=== PATIENT | female | born 1940 | race Caucasian/White ===

== ENCOUNTER 2025-02-27 14:08 | Outpatient (CLI) | payer MEDICARE, SELFPAY ==
--- NOTE | ~2025-02-27 | US_ITS ---
EXAMINATION: US carotid duplex BI DATE: 02/27/2025 19:36 CDT INDICATION: Branch retinal vein occlusion TECHNIQUE: Grayscale, color Doppler, and pulsed Doppler images of the cervical carotid arteries were obtained. The degree of vessel stenosis is placed in one of the following categories: normal, <50%, 50-69%, >=7 0% but less than near-occlusion, near-occlusion, or total occlusion. Note that percent stenosis relative to normal distal artery lumen diameter is indirectly measured fro m velocity measurements as described originally by Jori, et al. Radiology 2003; 229:340-346 and upda truman by mayi Edmondson al STROKE 2012;43(3);915-921. COMPARISON: None. FINDINGS: There is mild atherosclerosis of both carotid arteries. Peak systolic velocity (in cm/s) is detailed below RIGHT: Right common carotid artery (CCA): 93 cm/s. Right internal carotid artery (ICA) PSV: 83 cm/s. Right ICA end-diastolic velocity (EDV): 15 cm/s. Right ICA/CCA PSV ratio is 0.9. Right external carotid artery (ECA): 116cm/s. There is antegrade flow in the right vertebral artery LEFT: Left common carotid artery (CCA): 82 cm/s. Left internal carotid artery (ICA) PSV: 173 cm/s. Left ICA end-diastolic velocity (EDV): 41.2 cm/s. Left ICA/CCA PSV ratio is 2.1. Left external carotid artery (ECA): 125cm/s. There is antegrade flow in the left vertebral artery. IMPRESSION: 1. Less than 50% stenosis in the right internal carotid artery. 2. 50-69% stenosis in the left internal carotid artery. Reviewed, dictated and finalized at location A.
--- OUTSIDE RECORDS SUMMARY | 2025-02-27 14:24 | XMS_ITS | Data Portability ---
Author Organization [facility] Address [address] [place] [address] Assessment Encounter Date Assessment Date Assessment LastModified by Organization Details LastModified Time 10/18/2023 10/18/2023 hypertension amlodipine and irbesartan and Bystolic. Rhinitis controlled with Singulair and dyslipidemia low-fat diet and rosuvastatin breast cancer aromatase inhibitor therapy she will follow-up with me in 6 months we decided Not available 10/18/2023 22:39:42 04/18/2024 04/18/2024 stop amlodipine start nifedipine ER 30 mg daily with a blood pressure check in a couple of weeks and see me in 1 month CBC CMP and lipid. Oncology note reviewed she refuses bisphosphonates because she had jaw problems with Fosamax in the past she does take a baby aspirin daily. Reiterated calcium intake [email or web address] Not available 05/07/2024 12:48:34 05/24/2024 05/24/2024 blood pressure coming under better control A1c being addressed with the metformin and dietary strategies she will try to walk a little bit more dyslipidemia rosuvastatin she will follow up in 4 months still need to query her old records for immunizations [email or web address] Not available 06/17/2024 21:54:28 10/11/2024 10/11/2024 continue current therapy blood work has been ordered Lifestyle care instructions she has a appointment for foot health in November of this year states that she has had her pneumococcal vaccinations and flu shot I will see her in 6 months we will try to get her latest DEXA [email or web address] Not available 10/12/2024 22:33:38 02/13/2025 02/13/2025 Follow up 4 adriana hs continue current therapy healthy lifestyle care instructions. Blood work has been ordered it sounds like she is going to be released from her oncologist here soon with regards to the breast cancer. We will await the official report on her eyes from her portable machine cutter. CBC CMP lipid A1c [email or web address] Not available 02/13/2025 10:48:24 Plan of Treatment Reminders Order Date Submit Date Provider Last Modified By Organization Details Last Modified Time Details Appointments ANY 15 2024 09:00A Anjali Colon MD Not available Not available Not available Lab HbA1c (hemog lobin A1c), blood 2024 025 MARIA GUADALUPE [facility], [address], [place], [address], 02/14/2025 11:14:16 lipid panel, serum 2024 025 [facility] GUADALUPE [facility], [address], [place], [address], 02/14/2025 11:14:14 CBC w/ auto diff 2024 025 MARIA GUADALUPE [facility], [address], [place], [address], 02/14/2025 11:14:17 CMP, serum or plasma 2024 025 MARIA GUADALUPE [facility], [address], [place], [address], 02/14/2025 11:14:15 HbA1c (hemog lobin A1c), blood 2024 025 MARIA GUADALUPE [facility], [address], [place], [address], 10/12/2024 13:15:20 albumi n/crea radhaine , mass ratio, urine 2024 025 MARIA GUADALUPE [facility], [address], [place], [address], 10/12/2024 13:15:16 lipid panel, serum 2024 025 MARIA GUADALUPE [facility], [address] [facility], [facility] [address], [place], [address], 10/12/2024 13:15:17 CMP, serum or plasma 2024 025 MARIA GUADALUPE [facility], [address] [facility], [facility] [address], [place], [address], 10/12/2024 13:15:18 CBC w/ auto diff 2024 025 MARIA GUADALUPE [facility], [address] [facility], [facility] [address], [place], [address], 10/12/2024 13:15:22 lipid panel, serum 2023 024 [facility] GUADALUPE [facility], [address] [place] [address], [facility] [address], [place], [address], 04/19/2024 06:21:05 CMP, serum or plasma 2023 024 [facility]ADALUPE [facility], [address] [place] [address], [address], [place], [address], 04/19/2024 06:21:05 CBC w/ auto diff 2023 024 [facility], [address] [place] [address], [facility] [address], [place], [address], 04/19/2024 06:21:06 Referral None record ed. Procedures None record ed. Surgeries None record ed. Imaging None record ed. Medication Orders nifedi pine ER 30 mg tablet ,exten ded releas e 2023 024 MARIA GUADALUPE [id number] [facility], [address] [place], [address], 05/09/2024 12:31:48 rosuva statin 10 mg tablet 2023 024 [email or web address], [address], [place], [address], 10/19/2024 15:27:12 irbesa rtan 300 mg tablet 2023 024 [email or web address] [facility], [address], [place], [address], 10/18/2023 21:17:26 Bystol ic 10 mg tablet 2023 024 [facility], [address], [place], [address], 10/18/2023 21:17:26 corrine ukast 10 mg tablet 2023 024 [email or web address] [facility], [address], [place], [address], 04/18/2024 10:40:31 Patient TargetsNo targets recorded. Patient Instructions Encounter Date Encounter Id Patient Instructions Last Modified By Organization Details Last Modified Time 04/18/2024 [id number] A healthy lifestyle: care instructions Not available 04/18/2024 13:16:49 10/11/2024 [id number] A healthy lifestyle: care instructions Not available 10/11/2024 12:49:51 02/13/2025 [id number] A healthy lifestyle: care instructions [email or web address] Not available 02/13/2025 12:32:56 Reason for Referral None Reported. Results Created Date Observation Date Name Description Value Unit Range Abnormal Flag Note LastModifiedBy Organization Detail LastModifiedTime 04/18/2004/19/2024 LIPID PANEL cholesterol, total 188 mg/dL 100-19 9 Not Available [facility] ([facility]) [address] [facility], [place], [address], 04/19/2024 06:21:05 04/18/20 24 04/19/2024 LIPID PANEL triglyceride s 207 mg/dL 0-149 above high normal Not Available [facility] ([facility]) [address] [facility], [place], [address], 04/19/2024 06:21:05 04/18/20 24 04/19/2024 LIPID PANEL HDL cholesterol 61 mg/dL >39 Not Available [facility] ([facility]) [address] [place], [address], 04/19/2024 06:21:05 04/18/20 24 04/19/2024 LIPID PANEL VLDL cholesterol shandra 35 mg/dL 5-40 Not Available [facility] ([facility]) [address] [place], [address], 04/19/2024 06:21:05 04/18/20 24 04/19/2024 LIPID PANEL LDL chol calc ([facility]) 92 mg/dL 0-99 Not Available [facility] ([facility]) [address] [place], [address], 04/19/2024 06:21:05 04/18/20 24 04/19/2024 COMP. METAB OLIC PANEL (14) glucose 142 mg/dL 70-99 above high normal Not Available [facility] ([facility]) [address] [place], [address], 04/19/2024 06:21:05 04/18/20 24 04/19/2024 COMP. METAB OLIC PANEL (14) BUN 27 mg/dL 8-27 Not Available [facility] ([facility]) [address] [place], [address], 04/19/2024 06:21:05 04/18/20 24 04/19/2024 COMP. METAB OLIC PANEL (14) creatinine 1.14 mg/dL 0.57-1 .00 above high normal Not Available [facility] ([facility]) [address] [place], [address], 04/19/2024 06:21:05 04/18/20 24 04/19/2024 COMP. METAB OLIC PANEL (14) eGFR 48 mL/mi n/1.7 3 >59 below low normal Not Available [facility] ([facility]) [address], [place], [address], 04/19/2024 06:21:05 04/18/20 24 04/19/2024 COMP. METAB OLIC PANEL (14) BUN/creatini ne ratio 24 12-28 Not Available [facility] ([facility]) [address], [place], [address], 04/19/2024 06:21:05 04/18/20 24 04/19/2024 COMP. METAB OLIC PANEL (14) sodium 141 mmol/ L 134-14 4 Not Available [facility] ([facility]) [address], [place], [address], 04/19/2024 06:21:05 04/18/20 24 04/19/2024 COMP. METAB OLIC PANEL (14) potassium 4.8 mmol/ L 3.5-5. 2 Not Available [facility] ([facility]) [address], [place], [address], 04/19/2024 06:21:05 04/18/20 24 04/19/2024 COMP. METAB OLIC PANEL (14) chloride 102 mmol/ L 96-106 Not Available [facility] ([facility]) [address], [place], [address], 04/19/2024 06:21:05 04/18/20 24 04/19/2024 COMP. METAB OLIC PANEL (14) carbon dioxide, total 24 mmol/ L 20-29 Not Available [facility] ([place] [facility]) [address], [place], [address], 04/19/2024 06:21:05 04/18/20 24 04/19/2024 COMP. METAB OLIC PANEL (14) calcium 10.6 mg/dL 8.7-10 .3 above high normal Not Available [facility] ([place] [facility]) [address] [facility], [place], [address], 04/19/2024 06:21:05 04/18/20 24 04/19/2024 COMP. METAB OLIC PANEL (14) protein, total 7.3 g/dL 6.0-8. 5 Not Available [facility] ([facility]) [address], [place], [address], 04/19/2024 06:21:05 04/18/20 24 04/19/2024 COMP. METAB OLIC PANEL (14) albumin 4.6 g/dL 3.7-4. 7 Not Available [facility] ([facility]) [address], [place], [address], 04/19/2024 06:21:05 04/18/20 24 04/19/2024 COMP. METAB OLIC PANEL (14) globulin, total 2.7 g/dL 1.5-4. 5 Not Available [facility] ([facility]) [address], [place], [address], 04/19/2024 06:21:05 04/18/20 24 04/19/2024 COMP. METAB OLIC PANEL (14) bilirubin, total 0.7 mg/dL 0.0-1. 2 Not Available [facility] ([facility]) [address], [place], [address], 04/19/2024 06:21:05 04/18/20 24 04/19/2024 COMP. METAB OLIC PANEL (14) alkaline phosphatase 77 IU/L 44-121 Not Available [facility] ([facility]) [address], [place], [address], 04/19/2024 06:21:05 04/18/20 24 04/19/2024 COMP. METAB OLIC PANEL (14) AST (SGOT) 25 IU/L 0-40 Not Available [facility] ([facility]) [address] [facility], [place], [address], 04/19/2024 06:21:05 04/18/20 24 04/19/2024 COMP. METAB OLIC PANEL (14) ALT (SGPT) 20 IU/L 0-32 Not Available [facility] ([facility]) [address] [facility], [place], [address], 04/19/2024 06:21:05 04/18/20 24 04/18/2024 CBC WITH DIFFE RENTI AL/PL ATELE T WBC 5.5 x10e3 /uL 3.4-10 .8 Not Available [facility] ([facility]) [address] [facility], [place], [address], 04/19/2024 06:21:06 04/18/2004/18/2024 CBC WITH DIFFE RENTI AL/PL ATELE T RBC 4.27 x10e6 /uL 3.77-5 .28 Not Available [facility] ([facility]) [address] [facility], [place], [address], 04/19/2024 06:21:06 04/18/20 24 04/18/2024 CBC WITH DIFFE RENTI AL/PL ATELE T hemoglobin 13.4 g/dL 11.1-1 5.9 Not Available [facility] ([facility]) [address] [facility], [place], [address], 04/19/2024 06:21:06 04/18/2004/18/2024 CBC WITH DIFFE RENTI AL/PL ATELE T hematocrit 41.2 % 34.0-4 6.6 Not Available [facility] ([facility]) [address] [facility], [place], [address], 04/19/2024 06:21:06 04/18/2004/18/2024 CBC WITH DIFFE RENTI AL/PL ATELE T MCV 97 fL 79-97 Not Available [facility] ([facility]) [address] [facility], [place], [address], 04/19/2024 06:21:06 04/18/20 24 04/18/2024 CBC WITH DIFFE RENTI AL/PL ATELE T MCH 31.4 pg 26.6-3 3.0 Not Available [facility] ([facility]) [address] [facility], [place], [address], 04/19/2024 06:21:06 04/18/20 24 04/18/2024 CBC WITH DIFFE RENTI AL/PL ATELE T MCHC 32.5 g/dL 31.5-3 5.7 Not Available [facility] ([facility]) [address] [facility], [place], [address], 04/19/2024 06:21:06 04/18/2004/18/2024 CBC WITH DIFFE RENTI AL/PL ATELE T RDW 12.6 % 11.7-1 5.4 Not Available [facility] ([facility]) [address] [facility], [place], [address], 04/19/2024 06:21:06 04/18/20 24 04/18/2024 CBC WITH DIFFE RENTI AL/PL ATELE T platelets 223 x10e3 /uL 150-45 0 Not Available [facility] ([facility]) [address] [facility], [place], [address], 04/19/2024 06:21:06 04/18/20 24 04/18/2024 CBC WITH DIFFE RENTI AL/PL ATELE T neutrophils 59 % notest ab. Not Available [facility] ([facility]) [address] [place], [address], 04/19/2024 06:21:06 04/18/2004/18/2024 CBC WITH DIFFE RENTI AL/PL ATELE T lymphs 23 % notest ab. Not Available [facility] ([facility]) [address] [place], [address], 04/19/2024 06:21:06 04/18/2004/18/2024 CBC WITH DIFFE RENTI AL/PL ATELE T monocytes 9 % notest ab. Not Available [facility] ([facility]) [address] [facility], [place], [address], 04/19/2024 06:21:06 04/18/20 24 04/18/2024 CBC WITH DIFFE RENTI AL/PL ATELE T eos 8 % notest ab. Not Available [facility] ([facility]) [address] [facility], [place], [address], 04/19/2024 06:21:06 04/18/20 24 04/18/2024 CBC WITH DIFFE RENTI AL/PL ATELE T basos 1 % notest ab. Not Available [facility] ([facility]) [address] [facility], [place], [address], 04/19/2024 06:21:06 04/18/20 24 04/18/2024 CBC WITH DIFFE RENTI AL/PL ATELE T neutrophils (absolute) 3.2 x10e3 /uL 1.4-7. 0 Not Available [facility] ([facility]) [address] [facility], [place], [address], 04/19/2024 06:21:06 04/18/2004/18/2024 CBC WITH DIFFE RENTI AL/PL ATELE T lymphs (absolute) 1.3 x10e3 /uL 0.7-3. 1 Not Available [facility] ([facility]) [address] [facility], [place], [address], 04/19/2024 06:21:06 04/18/2004/18/2024 CBC WITH DIFFE RENTI AL/PL ATELE T monocytes(ab solute) 0.5 x10e3 /uL 0.1-0. 9 Not Available [facility] ([facility]) [address] [facility], [place], [address], 04/19/2024 06:21:06 04/18/20 24 04/18/2024 CBC WITH DIFFE RENTI AL/PL ATELE T eos (absolute) 0.4 x10e3 /uL 0.0-0. 4 Not Available [facility] ([facility]) [address] [place], [address], 04/19/2024 06:21:06 04/18/20 24 04/18/2024 CBC WITH DIFFE RENTI AL/PL ATELE T baso (absolute) 0.1 x10e3 /uL 0.0-0. 2 Not Available [facility] ([facility]) [address] [place], [address], 04/19/2024 06:21:06 04/18/2004/18/2024 CBC WITH DIFFE RENTI AL/PL ATELE T immature granulocytes 0 % notest ab. Not Available [facility] ([facility]) [address] [place], [address], 04/19/2024 06:21:06 04/18/20 24 04/18/2024 CBC WITH DIFFE RENTI AL/PL ATELE T immature grans (abs) 0.0 x10e3 /uL 0.0-0. 1 Not Available [facility] ([facility]) [address] [place], [address], 04/19/2024 06:21:06 04/24/2004/25/2024 HEMOG LOBIN A1C hemoglobin A1C 7.5 % 4.8-5. 6 above high normal Predi abete s: 5.7 - 6.4 Diabe veronica: >6.4 Glyce carmelita contr ol for adult s with diabe veronica: <7.0 Not Available [facility] ([facility]) [address] [place], [address], 04/25/2024 06:18:03 10/12/1910/12/2024 SPECI MEN STATU S REPOR T specimen status report TNP Test not perfo rmed. Patie nt was unabl e to provi de a self- colle cted speci men for the reque sted testi ng. The follo wing test( s) were not perfo rmed: TEST: [id number] Album in/Cr eatin ine Ratio ,Urin e Not Available [facility] ([facility]) [address] [place], [address], 10/12/2024 13:15:15 10/12/19 25 10/12/2024 ALBUM IN/CR EATIN INE RATIO ,URIN E creatinine, urine - mg/dL Test not perfo rmed. Patie nt was unabl e to provi de a self- colle cted speci men for the reque sted testi ng. The follo wing test( s) were not perfo rmed: Not Available [facility] ([facility]) [address] [place], [address], 10/12/2024 13:15:16 10/12/19 25 10/12/2024 ALBUM IN/CR EATIN INE RATIO ,URIN E albumin, urine - Test not perfo rmed Not Available [facility] ([facility]) [address] [place], [address], 10/12/2024 13:15:16 10/12/19 25 10/12/2024 LIPID PANEL cholesterol, total 185 mg/dL 100-19 9 Not Available [facility] ([facility]) [address] [place], [address], 10/12/2024 13:15:17 10/12/19 25 10/12/2024 LIPID PANEL triglyceride s 171 mg/dL 0-149 above high normal Not Available [facility] ([facility]) [address] [place], [address], 10/12/2024 13:15:17 10/12/19 25 10/12/2024 LIPID PANEL HDL cholesterol 65 mg/dL >39 Not Available [facility] ([facility]) [address] [place], [address], 10/12/2024 13:15:17 10/12/19 25 10/12/2024 LIPID PANEL VLDL cholesterol shandra 29 mg/dL 5-40 Not Available [facility] ([facility]) [address] [place], [address], 10/12/2024 13:15:17 10/12/19 25 10/12/2024 LIPID PANEL LDL chol calc ([facility]) 91 mg/dL 0-99 Not Available [facility]) [address] [place], [address], 10/12/2024 13:15:17 10/12/19 25 10/12/2024 COMP. METAB OLIC PANEL (14) glucose 99 mg/dL 70-99 Not Available [facility] ([facility]) [address] [place], [address], 10/12/2024 13:15:18 10/12/19 25 10/12/2024 COMP. METAB OLIC PANEL (14) BUN 36 mg/dL 8-27 above high normal Not Available [facility] ([facility]) [address] [place], [address], 10/12/2024 13:15:18 10/12/19 25 10/12/2024 COMP. METAB OLIC PANEL (14) creatinine 1.37 mg/dL 0.57-1 .00 above high normal Not Available [facility] ([facility]) [address] [place], [address], 10/12/2024 13:15:18 10/12/19 25 10/12/2024 COMP. METAB OLIC PANEL (14) eGFR 38 mL/mi n/1.7 3 >59 below low normal Not Available [facility] ([facility]) [address] [place], [address], 10/12/2024 13:15:18 10/12/19 25 10/12/2024 COMP. METAB OLIC PANEL (14) BUN/creatini ne ratio 26 12-28 Not Available [facility] ([facility]) [address] [facility] [place], [address], 10/12/2024 13:15:18 10/12/19 25 10/12/2024 COMP. METAB OLIC PANEL (14) sodium 141 mmol/ L 134-14 4 Not Available [facility] ([facility]) [address] [facility] [place], [address], 10/12/2024 13:15:18 10/12/19 25 10/12/2024 COMP. METAB OLIC PANEL (14) potassium 5.1 mmol/ L 3.5-5. 2 Not Available [facility] ([facility]) [address] [facility], [place], [address], 10/12/2024 13:15:18 10/12/19 25 10/12/2024 COMP. METAB OLIC PANEL (14) chloride 103 mmol/ L 96-106 Not Available [facility] ([facility]) [address] [facility], [place], [address], 10/12/2024 13:15:18 10/12/19 25 10/12/2024 COMP. METAB OLIC PANEL (14) carbon dioxide, total 22 mmol/ L 20-29 Not Available [facility] ([facility]) [address] [facility] [place], [address], 10/12/2024 13:15:18 10/12/19 25 10/12/2024 COMP. METAB OLIC PANEL (14) calcium 10.7 mg/dL 8.7-10 .3 above high normal Not Available [facility] ([facility]) [address] [facility] [place], [address], 10/12/2024 13:15:18 10/12/19 25 10/12/2024 COMP. METAB OLIC PANEL (14) protein, total 7.4 g/dL 6.0-8. 5 Not Available [facility] ([facility]) [address], [place], [address], 10/12/2024 13:15:18 10/12/19 25 10/12/2024 COMP. METAB OLIC PANEL (14) albumin 4.9 g/dL 3.7-4. 7 above high normal Not Available [facility] ([facility]) [address], [place], [address], 10/12/2024 13:15:18 10/12/19 25 10/12/2024 COMP. METAB OLIC PANEL (14) globulin, total 2.5 g/dL 1.5-4. 5 Not Available [facility] ([facility]) [address] [facility] [place], [address], 10/12/2024 13:15:18 10/12/19 25 10/12/2024 COMP. METAB OLIC PANEL (14) bilirubin, total 0.6 mg/dL 0.0-1. 2 Not Available [facility] ([facility]) [address] [facility], [place], [address], 10/12/2024 13:15:18 10/12/19 25 10/12/2024 COMP. METAB OLIC PANEL (14) alkaline phosphatase 73 IU/L 44-121 Not Available [facility]) [address] [facility], [place], [address], 10/12/2024 13:15:18 10/12/19 25 10/12/2024 COMP. METAB OLIC PANEL (14) AST (SGOT) 27 IU/L 0-40 Not Available [facility] ([facility]) [address] [facility] [place], [address], 10/12/2024 13:15:18 10/12/19 25 10/12/2024 COMP. METAB OLIC PANEL (14) ALT (SGPT) 19 IU/L 0-32 Not Available [facility] ([facility]) [address] [facility] [place], [address], 10/12/2024 13:15:18 10/12/19 25 10/11/2024 UNABL E TO VOID unable to void Commen t Patie nt unabl e to void. Urine to be colle cted at a later date. Not Available [facility] ([facility]) [address] [place], [address], 10/12/2024 13:15:20 10/12/19 25 10/12/2024 HEMOG LOBIN A1C hemoglobin A1C 6.2 % 4.8-5. 6 above high normal Predi abete s: 5.7 - 6.4 Diabe veronica: >6.4 Glyce carmelita contr ol for adult s with diabe veronica: <7.0 Not Available [facility] ([facility]) [address] [place], [address], 10/12/2024 13:15:20 10/12/19 25 10/12/2024 CBC WITH DIFFE RENTI AL/PL ATELE T WBC 6.6 x10e3 /uL 3.4-10 .8 Not Available [facility] ([facility]) [address] [facility], [place], [address], 10/12/2024 13:15:22 10/12/19 25 10/12/2024 CBC WITH DIFFE RENTI AL/PL ATELE T RBC 4.19 x10e6 /uL 3.77-5 .28 Not Available [facility] ([facility]) [address] [facility], [place], [address], 10/12/2024 13:15:22 10/12/19 25 10/12/2024 CBC WITH DIFFE RENTI AL/PL ATELE T hemoglobin 13.0 g/dL 11.1-1 5.9 Not Available [facility] ([facility]) [address] [place], [address], 10/12/2024 13:15:22 10/12/19 25 10/12/2024 CBC WITH DIFFE RENTI AL/PL ATELE T hematocrit 40.6 % 34.0-4 6.6 Not Available [facility] ([facility]) [address] [facility], [place], [address], 10/12/2024 13:15:22 10/12/19 25 10/12/2024 CBC WITH DIFFE RENTI AL/PL ATELE T MCV 97 fL 79-97 Not Available [facility] ([facility]) [address] [facility], [place], [address], 10/12/2024 13:15:22 10/12/19 25 10/12/2024 CBC WITH DIFFE RENTI AL/PL ATELE T MCH 31.0 pg 26.6-3 3.0 Not Available [facility] ([facility]) [address] [facility], [place], [address], 10/12/2024 13:15:22 10/12/19 25 10/12/2024 CBC WITH DIFFE RENTI AL/PL ATELE T MCHC 32.0 g/dL 31.5-3 5.7 Not Available [facility] ([facility]) [address] [place], [address], 10/12/2024 13:15:22 10/12/19 25 10/12/2024 CBC WITH DIFFE RENTI AL/PL ATELE T RDW 12.4 % 11.7-1 5.4 Not Available [facility] ([facility]) [address] [place], [address], 10/12/2024 13:15:22 10/12/19 25 10/12/2024 CBC WITH DIFFE RENTI AL/PL ATELE T platelets 250 x10e3 /uL 150-45 0 Not Available [facility] ([facility]) [address] [place], [address], 10/12/2024 13:15:22 10/12/19 25 10/12/2024 CBC WITH DIFFE RENTI AL/PL ATELE T neutrophils 59 % notest ab. Not Available [facility] ([facility]) [address] [facility], [place], [address], 10/12/2024 13:15:22 10/12/19 25 10/12/2024 CBC WITH DIFFE RENTI AL/PL ATELE T lymphs 22 % notest ab. Not Available [facility] ([facility]) [address] [facility], [place], [address], 10/12/2024 13:15:22 10/12/19 25 10/12/2024 CBC WITH DIFFE RENTI AL/PL ATELE T monocytes 9 % notest ab. Not Available [facility] ([facility]) [address] [facility], [place], [address], 10/12/2024 13:15:22 10/12/19 25 10/12/2024 CBC WITH DIFFE RENTI AL/PL ATELE T eos 8 % notest ab. Not Available [facility] ([facility]) [address] [facility] [address], [place], [address], 10/12/2024 13:15:22 10/12/19 25 10/12/2024 CBC WITH DIFFE RENTI AL/PL ATELE T basos 2 % notest ab. Not Available [facility] ([facility]) [address] [facility] [address], [place], [address], 10/12/2024 13:15:22 10/12/19 25 10/12/2024 CBC WITH DIFFE RENTI AL/PL ATELE T neutrophils (absolute) 4.0 x10e3 /uL 1.4-7. 0 Not Available [facility] ([facility]) [address] [facility] [address], [place], [address], 10/12/2024 13:15:22 10/12/19 25 10/12/2024 CBC WITH DIFFE RENTI AL/PL ATELE T lymphs (absolute) 1.4 x10e3 /uL 0.7-3. 1 Not Available [facility] ([facility]) [address] [facility] [address], [place], [address], 10/12/2024 13:15:22 10/12/19 25 10/12/2024 CBC WITH DIFFE RENTI AL/PL ATELE T monocytes(ab solute) 0.6 x10e3 /uL 0.1-0. 9 Not Available [facility] ([facility]) [address] [facility] [address], [place], [address], 10/12/2024 13:15:22 10/12/19 25 10/12/2024 CBC WITH DIFFE RENTI AL/PL ATELE T eos (absolute) 0.5 x10e3 /uL 0.0-0. 4 above high normal Not Available [facility] ([facility]) [address], [place], [address], 10/12/2024 13:15:22 10/12/19 25 10/12/2024 CBC WITH DIFFE RENTI AL/PL ATELE T baso (absolute) 0.1 x10e3 /uL 0.0-0. 2 Not Available [facility] ([facility]) [address], [place], [address], 10/12/2024 13:15:22 10/12/19 25 10/12/2024 CBC WITH DIFFE RENTI AL/PL ATELE T immature granulocytes 0 % notest ab. Not Available [facility] ([facility]) [address] [place], [address], 10/12/2024 13:15:22 10/12/19 25 10/12/2024 CBC WITH DIFFE RENTI AL/PL ATELE T immature grans (abs) 0.0 x10e3 /uL 0.0-0. 1 Not Available [facility] ([facility]) [address] [facility] [facility] [address], [place], [address], 10/12/2024 13:15:22 02/14/20 25 02/14/2025 LIPID PANEL cholesterol, total 213 mg/dL 100-19 9 above high normal Not Available [facility] ([facility]) [address] [place], [address], 02/14/2025 11:14:14 02/14/20 25 02/14/2025 LIPID PANEL triglyceride s 167 mg/dL 0-149 above high normal Not Available [facility] ([facility]) [address] [place], [address], 02/14/2025 11:14:14 02/14/20 25 02/14/2025 LIPID PANEL HDL cholesterol 71 mg/dL >39 Not Available [facility] ([facility]) [address] [place], [address], 02/14/2025 11:14:14 02/14/20 25 02/14/2025 LIPID PANEL VLDL cholesterol shandra 29 mg/dL 5-40 Not Available [facility] ([facility]) [address] [place], [address], 02/14/2025 11:14:14 02/14/20 25 02/14/2025 LIPID PANEL LDL chol calc ([facility]) 113 mg/dL 0-99 above high normal Not Available [facility] ([facility]) [address] [place], [address], 02/14/2025 11:14:14 02/14/20 25 02/14/2025 COMP. METAB OLIC PANEL (14) glucose 116 mg/dL 70-99 above high normal Not Available [facility] ([facility]) [address] [place], [address], 02/14/2025 11:14:15 02/14/20 25 02/14/2025 COMP. METAB OLIC PANEL (14) BUN 36 mg/dL 8-27 above high normal Not Available [facility] ([facility]) [address] [place], [address], 02/14/2025 11:14:15 02/14/20 25 02/14/2025 COMP. METAB OLIC PANEL (14) creatinine 1.50 mg/dL 0.57-1 .00 above high normal Not Available [facility] ([facility]) [address] [facility] [facility] [address], [place], [address], 02/14/2025 11:14:15 02/14/20 25 02/14/2025 COMP. METAB OLIC PANEL (14) eGFR 34 mL/mi n/1.7 3 >59 below low normal Not Available [facility] ([facility]) [address] [facility] [place], [address], 02/14/2025 11:14:15 02/14/20 25 02/14/2025 COMP. METAB OLIC PANEL (14) BUN/creatini ne ratio 24 12-28 Not Available [facility] ([facility]) [address] [facility] [facility] [place], [address], 02/14/2025 11:14:15 02/14/20 25 02/14/2025 COMP. METAB OLIC PANEL (14) sodium 142 mmol/ L 134-14 4 Not Available [facility] ([facility]) [address] [facility] [place], [address], 02/14/2025 11:14:15 02/14/20 25 02/14/2025 COMP. METAB OLIC PANEL (14) potassium 5.0 mmol/ L 3.5-5. 2 Not Available [facility] ([facility]) [address] [facility] [place], [address], 02/14/2025 11:14:15 02/14/20 25 02/14/2025 COMP. METAB OLIC PANEL (14) chloride 104 mmol/ L 96-106 Not Available [facility] ([facility]) [address] [facility] [place], [address], 02/14/2025 11:14:15 02/14/20 25 02/14/2025 COMP. METAB OLIC PANEL (14) carbon dioxide, total 20 mmol/ L 20-29 Not Available [facility] ([facility]) [address] [facility] [place], [address], 02/14/2025 11:14:15 02/14/20 25 02/14/2025 COMP. METAB OLIC PANEL (14) calcium 11.0 mg/dL 8.7-10 .3 above high normal Not Available [facility] ([facility]) [address] [facility] [place], [address], 02/14/2025 11:14:15 02/14/20 25 02/14/2025 COMP. METAB OLIC PANEL (14) protein, total 7.5 g/dL 6.0-8. 5 Not Available [facility] ([facility]) [address] [facility] [place], [address], 02/14/2025 11:14:15 02/14/20 25 02/14/2025 COMP. METAB OLIC PANEL (14) albumin 4.9 g/dL 3.7-4. 7 above high normal Not Available [facility] ([facility]) [address] [facility] [place], [address], 02/14/2025 11:14:15 02/14/20 25 02/14/2025 COMP. METAB OLIC PANEL (14) globulin, total 2.6 g/dL 1.5-4. 5 Not Available [facility] ([facility]) [address] [facility] [place], [address], 02/14/2025 11:14:15 02/14/20 25 02/14/2025 COMP. METAB OLIC PANEL (14) bilirubin, total 0.6 mg/dL 0.0-1. 2 Not Available [facility] ([facility]) [address] [facility] [place], [address], 02/14/2025 11:14:15 02/14/20 25 02/14/2025 COMP. METAB OLIC PANEL (14) alkaline phosphatase 72 IU/L 44-121 Not Available [facility] ([facility]) [address] [facility] [place], [address], 02/14/2025 11:14:15 02/14/20 25 02/14/2025 COMP. METAB OLIC PANEL (14) AST (SGOT) 30 IU/L 0-40 Not Available [facility] ([facility]) [address] [facility] [facility] [place], [address], 02/14/2025 11:14:15 02/14/20 25 02/14/2025 COMP. METAB OLIC PANEL (14) ALT (SGPT) 17 IU/L 0-32 Not Available [facility] ([facility]) [address] [place], [address], 02/14/2025 11:14:15 02/14/20 25 02/14/2025 HEMOG LOBIN A1C hemoglobin A1C 6.1 % 4.8-5. 6 above high normal Predi abete s: 5.7 - 6.4 Diabe veronica: >6.4 Glyce carmelita contr ol for adult s with diabe veronica: <7.0 Not Available [facility] ([facility]) [address] [place], [address], 02/14/2025 11:14:16 02/14/20 25 02/14/2025 CBC WITH DIFFE RENTI AL/PL ATELE T WBC 6.3 x10e3 /uL 3.4-10 .8 Not Available [facility] ([facility]) [address] [place], [address], 02/14/2025 11:14:17 02/14/2002/14/2025 CBC WITH DIFFE RENTI AL/PL ATELE T RBC 4.36 x10e6 /uL 3.77-5 .28 Not Available [facility] ([facility]) [address] [place], [address], 02/14/2025 11:14:17 02/14/20 25 02/14/2025 CBC WITH DIFFE RENTI AL/PL ATELE T hemoglobin 13.1 g/dL 11.1-1 5.9 Not Available [facility] ([facility]) [address], [place], [address], 02/14/2025 11:14:17 02/14/2002/14/2025 CBC WITH DIFFE RENTI AL/PL ATELE T hematocrit 42.0 % 34.0-4 6.6 Not Available [facility] ([facility]) [address] [place], [address], 02/14/2025 11:14:17 02/14/2002/14/2025 CBC WITH DIFFE RENTI AL/PL ATELE T MCV 96 fL 79-97 Not Available [facility] ([facility]) [address] [place], [address], 02/14/2025 11:14:17 02/14/2002/14/2025 CBC WITH DIFFE RENTI AL/PL ATELE T MCH 30.0 pg 26.6-3 3.0 Not Available [facility] ([facility]) [address] [place], [address], 02/14/2025 11:14:17 02/14/2002/14/2025 CBC WITH DIFFE RENTI AL/PL ATELE T MCHC 31.2 g/dL 31.5-3 5.7 below low normal Not Available [facility] ([facility]) [address] [place], [address], 02/14/2025 11:14:17 02/14/2002/14/2025 CBC WITH DIFFE RENTI AL/PL ATELE T RDW 13.2 % 11.7-1 5.4 Not Available [facility] ([facility]) [address] [place], [address], 02/14/2025 11:14:17 02/14/20 25 02/14/2025 CBC WITH DIFFE RENTI AL/PL ATELE T platelets 248 x10e3 /uL 150-45 0 Not Available [facility] ([facility]) [address], [place], [address], 02/14/2025 11:14:17 02/14/20 25 02/14/2025 CBC WITH DIFFE RENTI AL/PL ATELE T neutrophils 63 % notest ab. Not Available [facility] ([facility]) [address], [place], [address], 02/14/2025 11:14:17 02/14/20 25 02/14/2025 CBC WITH DIFFE RENTI AL/PL ATELE T lymphs 20 % notest ab. Not Available [facility] ([facility]) [address], [place], [address], 02/14/2025 11:14:17 02/14/20 25 02/14/2025 CBC WITH DIFFE RENTI AL/PL ATELE T monocytes 8 % notest ab. Not Available [facility] ([facility]) [address], [place], [address], 02/14/2025 11:14:17 02/14/20 25 02/14/2025 CBC WITH DIFFE RENTI AL/PL ATELE T eos 8 % notest ab. Not Available [facility] ([facility]) [address], [place], [address], 02/14/2025 11:14:17 02/14/20 25 02/14/2025 CBC WITH DIFFE RENTI AL/PL ATELE T basos 1 % notest ab. Not Available [facility] ([facility]) [address], [place], [address], 02/14/2025 11:14:17 02/14/20 25 02/14/2025 CBC WITH DIFFE RENTI AL/PL ATELE T neutrophils (absolute) 4.0 x10e3 /uL 1.4-7. 0 Not Available [facility] ([facility]) [address], [place], [address], 02/14/2025 11:14:17 02/14/20 25 02/14/2025 CBC WITH DIFFE RENTI AL/PL ATELE T lymphs (absolute) 1.2 x10e3 /uL 0.7-3. 1 Not Available [facility] ([facility]) [address], [place], [address], 02/14/2025 11:14:17 02/14/20 25 02/14/2025 CBC WITH DIFFE RENTI AL/PL ATELE T monocytes(ab solute) 0.5 x10e3 /uL 0.1-0. 9 Not Available [facility] ([facility]) [address], [place], [address], 02/14/2025 11:14:17 02/14/20 25 02/14/2025 CBC WITH DIFFE RENTI AL/PL ATELE T eos (absolute) 0.5 x10e3 /uL 0.0-0. 4 above high normal Not Available [facility] ([facility]) [address], [place], [address], 02/14/2025 11:14:17 02/14/20 25 02/14/2025 CBC WITH DIFFE RENTI AL/PL ATELE T baso (absolute) 0.1 x10e3 /uL 0.0-0. 2 Not Available [facility] ([facility]) [address], [place], [address], 02/14/2025 11:14:17 02/14/2002/14/2025 CBC WITH DIFFE RENTI AL/PL ATELE T immature granulocytes 0 % notest ab. Not Available [facility] ([facility]) [address], [place], [address], 02/14/2025 11:14:17 02/14/20 25 02/14/2025 CBC WITH DIFFE RENTI AL/PL ATELE T immature grans (abs) 0.0 x10e3 /uL 0.0-0. 1 Not Available [facility] ([facility]) [address], [place], [address], 02/14/2025 11:14:17 01/07/20 24 12/28/2023 diabe tic eye exam* No observ ation record ed. [employer] [employer] [facility] [address], [place], [address], 08/22/2024 12:24:41 Result Notes None recorded. Problems Name Problem SNOMED Code Status Onset Date Resolution Date Notes Provider Name and Address Organization Details Recorded Time Essential hypertension 00670425 Active 2023 Abiodun Welsh MA null, [place] - [facility] 4 11:19:10 Overweight 467338375 Active 2023 Abiodun Welsh MA null, [place] - [facility] 4 11:19:10 Type 2 diabetes mellitus 88447298 Active 2023 Hernandez Colon MD Attn: Shahnaz olivas,[address] [facility], [place], [address], [facility] 4 17:38:26 Hyperlipidemia 28825217 Active 2023 Hernandez Colon MD Attn: Shahnaz olivas,[address] [facility], [place], [address], [place] - [facility] 4 12:47:39 History of malignant neoplasm of breast 729665347 Active 2023 Hernandez Colon MD Attn: Shahnaz olivas,[address] [facility], [place], [address], [place] [facility] 4 12:47:58 Osteopenia 994986132 Active 2023 Hernandez Colon MD Attn: Shahnaz olivas,[address] [facility], [place], [address], [place] [facility] 4 12:48:18 Problem Notes None recorded. Procedures Surgical History Date Name Laterality Status Provider Name and Address Organization Details Recorded Time Eye Surgery completed Jian Jefferson GALINA [facility] 10/18/2023 16:36:14 Knee Surgery completed Jian Jefferson GALINA [facility] 10/18/2023 16:36:55 Breast Surgery completed Jian Jefferson GALINA [facility] 10/18/2023 16:37:02 Total hysterectomy completed Jian JeffersonGALINA [facility] 10/18/2023 16:37:09 Mastectomy completed Jian Jefferson GALINA [facility] 10/18/2023 16:37:20 Imaging Results None recorded. Procedure Notes None recorded. Medical Equipment None Reported. Allergies Allergen ID Allergen Name Allergen Category Reaction Reaction Severity Criticality Documentation Date Start Date Code Code System Note Provider Name and Address Organization Details Recorded Time 053002 acetamino phen / oxycodone medicatio n Not available Not available Not available 10/18/2023 93577 3 RxNorm Jian JeffersonGALINA luiz [facility] 4 16:39:28 832647 tamoxifen medicatio n Not available Not available Not available 10/18/2023 28565 RxNorm Jian JeffersonGALINA luiz [facility] 4 16:39:46 Medications Name Sig Start Date Stop Date Status Note LastModified by Organization Details LastModified Time metformin 500 mg tablet TAKE 1 TABLET DAILY 2023 active Not Available Not Available Not Avai lable anastrozo le 1 mg tablet active Not Available Not Available Not Available atorvasta tin 20 mg tablet Take 1 tablet every day by oral route for 90 days. 2024 active Not Available Not Available Not Avai lable atorvasta tin 10 mg tablet TAKE 1 TABLET DAILY 02/23 completed dose changed Not Available Not Available Not Available nifedipin e ER 30 mg tablet,ex tended release TAKE 1 TABLET BY MOUTH EVERY DAY 05/09 completed Not Available Not Available Not Available amlodipin e 5 mg tablet TAKE 1 TABLET DAILY 04/[address] Colon at visit 04/18/24 changed to Nifedipi ne Not Available Not Available Not Available montel[address] st 10 mg tablet Take 1 tablet every day by oral route. 04/18 completed Not Available Not Available Not Available Baby Aspirin 81 mg chewable tablet Chew 1 tablet every day by oral route. active Not Available Not Available No t Available methylpre dnisolone 4 mg tablets in a dose pack Take 1 dose pk by oral route. 02/13 completed Not Available Not Available Not Available nifedipin e ER 60 mg tablet,ex tended release TAKE 1 TABLET DAILY 2023 active Not Available Not Available Not Avai lable fluticaso ne propionat e 50 mcg/actua tion nasal spray,fransisca pension [place] 1 spray every day by intranas al route. active Not Available Not Available No t Available irbesarta n 300 mg tablet TAKE 1 TABLET DAILY 2024 active Not Available Not Available Not Avai lable rosuvasta tin 10 mg tablet TAKE 1 TABLET DAILY 10/[address] Colon due to kidney lab results Not Available Not Available Not Available Tylenol active as needed Not Available Not Available Not Available Vitamin D3 25mcg active Not Available Not Available Not Available Zyrtec active Not Available Not Availa ble Not Available nebivolol 10 mg tablet TAKE 1 TABLET DAILY 2024 active Not Available Not Available Not Avai lable Prevacid 24Hr active Not Available Not Available Not Available OneTouch Verio test strips CHECK HER SUGAR 3 DAYS A WEEK IN THE MORNING active Not Available Not Available No t Available OneTouch Delica Plus Lancet 33 gauge USE TO CHECK BLOOD SUGARS IN THE MORNING THREE DAYS A WEEK active Not Available Not Available No t Available Vitals Date Recorded Body height Body mass index (BMI) Body weight Heart rate Oxygen saturation Oxygen saturation in Arterial blood by Pulse oximetry Systolic And Diastolic Provider Name and Address Organization Details Last Updated DateTime 5 162.56 cm 33.6 kg/m2 09213.0 3 g 70 /min 94 % 94 % 122/72 mm[Hg] Chayito Cai [place] - [facility] 5 11:32:15 Date Recorded Body weight Body mass index (BMI) Body height Heart rate Oxygen saturation Oxygen saturation in Arterial blood by Pulse oximetry Systolic And Diastolic Provider Name and Address Organization Details Last Updated DateTime 4 74572.7 6 g 34.3 kg/m2 162.56 cm 65 /min 93 % 93 % 160/80 mm[Hg] Jian Jefferson MA [facility] 4 16:43:56 Date Recorded Body height Body mass index (BMI) Body weight Heart rate Oxygen saturation Oxygen saturation in Arterial blood by Pulse oximetry Systolic And Diastolic Provider Name and Address Organization Details Last Updated DateTime 5 162.56 cm 32.9 kg/m2 76223.5 8 g 85 /min 95 % 95 % 140/78 mm[Hg] Chikis Mccarthy MA [facility] 5 09:57:31 Date Recorded Body height Body mass index (BMI) Body weight Heart rate Oxygen saturation Oxygen saturation in Arterial blood by Pulse oximetry Systolic And Diastolic Provider Name and Address Organization Details Last Updated DateTime 4 162.56 cm 35.6 kg/m2 83127.7 8 g 76 /min 95 % 95 % 170/80 mm[Hg] Nohemy Sanchez MA [facility] 4 10:37:40 Date Recorded Body height Body mass index (BMI) Body weight Heart rate Oxygen saturation Oxygen saturation in Arterial blood by Pulse oximetry Systolic And Diastolic Provider Name and Address Organization Details Last Updated DateTime 4 162.56 cm 34.7 kg/m2 67372.6 6 g 74 /min 97 % 97 % 120/54 mm[Hg] Nohemy Sanchez MA [facility] 4 10:31:12 Social History Question Answer Notes LastModified by Organizat ion Details LastModified Time Tobacco Smoking Status [facility] 10/18/2023 16:34:42 Are You Blind Or Do You Have Difficulty Seeing? No Information not available 10/18/2023 What Is Your Level Of Caffeine Consumption? None Information not available 10/18/2023 Are You Deaf Or Do You Have Serious Difficulty Hearing? No Information not available 10/18/2023 What Type Of Diet Are You Following? REGULAR Information not available 10/18/2023 Are There Any Guns Present In Your Home? No Information not available 10/18/2023 What Was The Date Of Your Most Recent Tobacco Screening? 02/13/2025 [email or web address] Information not available 02/13/2025 What Is Your Relationship Status? Information not available 10/18/2023 Do You Use Your Seat Belt Or Car Seat Routinely? Yes Information not available 10/18/2023 Do You Have Smoke And Carbon Monoxide Detectors In Your Home? Yes Information not available 10/18/2023 Do You Use Sunscreen Routinely? No Information not available 10/18/2023 Has Tobacco Cessation Counseling Been Provided? No Information not available 10/18/2023 Sex: Female Functional Status Question Answer Note LastModified by Organizat ion Details LastModified Time Do you use any illicit or recreational drugs? No Information not available 10/18/2023 Do you or have you ever used any other forms of tobacco or nicotine? No Information not available 10/18/2023 What is your level of alcohol consumption? None Information not available 10/18/2023 Are you able to care for yourself? Yes Information not available 10/18/2023 What is your exercise level? None Information not available 10/18/2023 Mental Status Question Answer Note LastModified by Organization D etails LastModified Time Do you feel stressed (tense, restless, nervous, or anxious, or unable to sleep at night)? [id number] Information not available 10/18/2023 Family History Relationship Description Onset Age of this Age Resolved Age Notes LastModified by Organization Details LastModified Time Father Cerebrovascu lar accident [email or web address] Not available 0 10/18/2023 16:33:42 Mother Heart disease [email or web address] Not available 10/07 16:33:50 Medical History Condition Response Coronary Artery Disease N Other N High Blood Pressure Y Atrial Fibrillation N Kidney or Bladder Problems N Thyroid Problems N GI Problems N Depression N COPD N Blood Clots Y Skin Problems N Anemia N Heart Attack ([place]) N Anxiety Disorder N Diabetes N Muscle, Joint, or Bone Problems Y Seizures/Epilepsy N Acid Reflux (GERD) N Cancer Y Stroke N Asthma N Allergies N High Cholesterol Y Hepatitis N Liver Disease N Headaches N Heart Failure N Osteoporosis N Gynecological HistoryNo gynecological history recorded. Obstetrics History GPAL:G 0 P 0 0 0 0 Immunizations Vaccine Type Date Status Note Provider Nam e and Address Organization Details Recorded Time zoster, unspecified formulation 0 completed Sharon G[place], [place] - [facility] 10/11/2024 09:12:43 Influenza, high-dose, quadrivalent, PF 1 completed Sharon Abraham [place] de[place], [place] [facility] 10/11/2024 09:12:43 Influenza, high-dose, quadrivalent, PF 3 completed Sharon [place] [facility] 10/11/2024 09:12:43 COVID-19, mRNA, LNP-S, PF, 30 mcg/0.3 mL dose 1 completed Sharon [place] [facility] 10/11/2024 09:12:43 COVID-19, mRNA, LNP-S, PF, 30 mcg/0.3 mL dose 1 completed Sharon [place] [facility] 10/11/2024 09:12:43 COVID-19, mRNA, LNP-S, PF, 30 mcg/0.3 mL dose 1 completed Sharon [place] [facility] 10/11/2024 09:12:43 COVID-19, mRNA, LNP-S, bivalent, PF, 30 mcg/0.3 mL dose 2 completed Sharon [place] [facility] 10/11/2024 09:12:43 COVID-19, mRNA, LNP-S, PF, diana-sucrose, 30 mcg/0.3 mL 3 completed Sharon [place] [facility] 10/11/2024 09:12:43 influenza, unspecified formulation 0 [place] [facility] 10/11/2024 09:12:44 influenza, unspecified formulation 8 [place] [facility] 10/11/2024 09:12:44 Pneumococcal conjugate PCV 13 4 [place] [facility] 10/11/2024 09:12:44 zoster live 0 completed Sharon Abraham, [place] [facility] 10/11/2024 09:12:44 Influenza, high-dose, trivalent, PF 8 completed Sharon [place], [place] [facility] 10/11/2024 09:12:44 Influenza, high-dose, trivalent, PF 9 completed Sharon [place] [facility] 10/11/2024 09:12:44 Influenza, high-dose, trivalent, PF 7 completed Sharon [place] [facility] 10/11/2024 09:12:44 Influenza, split virus, trivalent, preservative 0 completed Sharon [place] [facility] 10/11/2024 09:12:44 Influenza, split virus, quadrivalent, PF 2 completed Sharon [place] [facility] 10/11/2024 09:12:44 Influenza, adjuvanted, trivalent, PF 4 completed Chayito [place] [facility] 10/11/2024 11:29:19 COVID-19, mRNA, LNP-S, PF, diana-sucrose, 30 mcg/0.3 mL 4 completed Chayito [place] [facility] 10/11/2024 11:29:19 Tdap 9 completed Chikis Mcc[place] [facility] 02/13/2025 10:01:24 Past Encounters Encounter ID Performer Location Encounter Start Date Encounter Closed Date Diagnosis/Indication Diagnosis SNOMED-CT Code Diagnosis ICD10 Code Diagnosis Note [id number] Hernandez Colon MD [facility] (Adult Med) [address] [place] [phone] 10/18/2023 15:51:34 10/18/2023 17:32:02 Renewal of prescription 869249544 Z76.0 Essential hypertension 81956863 I10 Hyperlipidemia 67801537 E78.5 History of malignant neoplasm of breast 833492332 Z85.3 Chronic rhinitis 2600594 6 J31.0 [id number] Hernandez Colon MD [facility] (Adult Med) [address] [place] [id number] 04/18/2024 10:20:42 04/18/2024 11:17:01 Overweight 616820373 E66.3 BMI 35.6 Essential hypertension 50371744 I10 Hyperlipidemia 78207744 E78.5 Osteopenia 645490187 M85 .80 [id number] Hernandez Colon MD [facility] (Adult Med) [address] [place] [id number] 05/24/2024 10:16:01 05/24/2024 11:00:36 Hyperlipidemia 88849779 E78.5 Type 2 keith betes mellitus 69990629 E11.9 Essential hypertension 26785750 I10 [id number] Hernandez Colon MD [facility] (Adult Med) [address] [place] [id number] 10/11/2024 11:12:40 10/11/2024 12:00:00 Body mass index 30+ - obesity 838385934 Z68.33 Obesity 213380507 E66.9 Type 2 keith betes mellitus 15886559 E11.9 Hyperlipidemia 81063942 E78.5 Essential hypertension 94212321 I10 [id number] Hernandez Colon MD [facility] (Adult Med) [address] [place] [id number] 02/13/2025 09:49:08 02/13/2025 10:28:54 Obese class I 7464271575 81335 E66.811 BMI 32.9 Type 2 keith betes mellitus 58042409 E11.9 Essential hypertension 50919745 I10 Hyperlipidemia 78777167 E78.5 History of malignant neoplasm of breast 386175173 Z85.3 Health Concerns Section Related Observation LastModified by Organization Detai ls LastModified Time None Recorded Concern Status LastModified by Organization Details LastModified Time None Recorded Advance Directives Directive None Recorded Payers Insurance Date Sequence Insurance Name Policy Number Policy Ramsey Covered Member ID Ramsey Member ID Guarantor Name 02/13/2025 2 [place] [id number] Perla Aguero [id number] Perla Aguero 02/13/2025 [place] - [facility] - [facility] Perla Aguero [id number] Perla Aguero 02/13/2025 1 [place] Perla Aguero [id number] Perla Aguero 02/13/2025 3 [place] Perla Aguero [id number] Perla Aguero 02/13/2025 2 [place] [id number] Perla Aguero [id number] Perla Aguero 02/13/2025 1 [facility] - MEDICARE-[place] [address] (MEDICARE) Perla Aguero [id number] Perla Aguero Notes Date Note Type Note Provider Name and Address Organization Details Recorded Time 10/18/2023 text/html Hypertension no chest pain or dizziness. Hyperlipidemia doing fine with regard to red meat intake. History of breast cancer follows up with oncology and is on aromatase inhibitor therapy chronic rhinitis stable on her montelukast Hernandez Colon MD Attn: Accounting, [address] [facility], [place], [address], [facility] - [facility] 10/18/2023 22:40:06 04/18/2024 text/html blood pressure uncontrolled but asymptomatic. Weight struggles rhinitis doing okay she stopped the Singulair is taking Zyrtec. History of breast cancer follows with Oncology. Dyslipidemia does take her rosuvastatin Hernandez Colon MD Attn: Accounting,[address] [facility], [place], [address], [facility] - [facility] 05/07/2024 12:49:11 05/24/2024 text/html diabetes A1c 7.5 she is tolerating the metformin. Hypertension doing better on the nifedipine 60 mg. Hyperlipidemia she is tolerating the rosuvastatin Hernandez Colon MD Attn: Accounting,[address] [facility], [place], [address], [facility] - [facility] 06/17/2024 21:57:26 10/11/2024 text/html comes in for fol low up diabetes has been doing reasonably well but needs to have a little bit of blood work done hyperlipidemia tries to watch her diet blood pressure has been controlled she has not had any new interval developments or complaints as sounds like she may have actually been released by her oncologist Hernandez Colon MD Attn: Accounting,[address] [facility], [place], [address], [facility] - [facility] 10/12/2024 22:34:52 02/13/2025 text/html Diabetes no polyphagia or polydipsia no hypoglycemia does not take her sugars regularly. Hyperlipidemia she does try to follow a low-fat diet. Hypertension she has not had any chest pain shortness of breath or palpitations. Interval history she has had some micro and macro aneurysm she states from her appointment with the eye doctor and they are going to be doing some laser therapy whether or not this is diabetic retinopathy I do not have the official report yet but kind of sounds like [place]INA Méndez, [place] - [place] 02/16/2025 13:49:12 OBGyn Episode No OBEpisode recorded.
--- OUTSIDE RECORDS SUMMARY | 2025-02-27 14:24 | XMS_ITS | Clinical Summary ---
Author Organization [facility] Address [address] [place] [address] Care Team Providers Care Sport Shoe Spike Assembler Name Role Phone Hernandez Colon MD Primary Care Provider [phone] Allergies Active Allergy Reactions Criticality Noted Date Comments Oxycodone-Acetaminophen Tamoxifen Other (See comments) Low 06/10/2022 Developed a DVT Medications irbesartan (AVAPRO) 300 mg tablet 8 Active BYSTOLIC 10 mg tablet 8 Active rosuvastatin (CRESTOR) 10 mg tablet 8 Active aspirin 81 mg tablet Take 1 tablet (81 mg total) by mouth daily Active lansoprazole (PREVACID) 15 mg capsule Take 1 capsule (15 mg total) by mouth daily Active cetirizine (ZyrTEC) 10 mg chewable tablet Take 1 tablet (10 mg total) by mouth as needed for rhinitis Active fluticasone propionate (FLONASE) 50 mcg/actuation nasal spray Administer 1 spray into each nostril as needed for allergies or rhinitis Active calcium carbonate (OS-LAUREN) 1,500 mg (600 mg elemental) tablet 2 (two) times a day 0 Active cholecalciferol (VITAMIN D-3) 2000 unit capsule TAKE 1 CAPSULE EVERY DAY 90 capsule 3 Active Additional Information Patient taking differently: 1,000 Unitsoral Daily, Reported on 08/29/2024 metFORMIN (GLUCOPHAGE) 500 mg tablet Take 1 tablet (500 mg total) by mouth 2 (two) times a day with meals Active NIFEdipine (NIFEdipine CC) 60 mg 24 hr tablet Take 1 tablet (60 mg total) by mouth daily Active Active Problems Problem Noted Date Diagnosed Date Ductal carcinoma in situ (DCIS) of breast 2017 Abnormal mammogram 11/23/2014 Encounters Date Type Department Care Team Description 02/19/2025 9:43 AM CDT - 02/19/2025 11:59 PM CDT Hospital Encounter [facility] Medical Office Bl 1 Breast [facility] [address] [place] [address] Encounter for screening mammogram for breast cancer Discharge Disposition: Discharge to home or self care from Last 3 Months Immunizations Immunization Administration Dates Next Due Influenza, Quadrivalent, Spl it, Preservative Free, Intramuscular 05/18/2022 Influenza, Trivalent, High D ose, Split, Preservative Free, Intramuscular 05/17/2019 Influenza, Trivalent, IM (MDV) 05/11/2020 Influenza, Unspecified 05/04/2021,05/23/2020 Pfizer SARS-CoV-2 Monovalent Vaccination (12+ Yrs) PURPLE 05/04/2021,04/14/2021,09/23/2020,09/02,09/02/2020 Pfizer Sars-Cov-2 Bivalent V accination (12+ YRS) 05/18/2022 Pneumococcal Conjugate PCV 13 07/02/2014 ZOSTER LIVE 02/08/2020 Surgical History Surgery Date Site/Laterality Comments TOTAL KNEE ARTHROPLASTY Left CATARACT EXTRACTION W/ INTRA OCULAR LENS & ANTERIOR VITRECTOMY Left ABDOMINAL HYSTERECTOMY BREAST LUMPECTOMY MASTECTOMY MODIFIED RADICAL Left BREAST BIOPSY Medical History Medical History Date Comments HTN (hypertension) Hyperlipidemia Cataract Osteoarthritis of both knees Asthma GERD (gastroesophageal reflux disease) Breast cancer (HCC) Family History Medical History Relation Name Comments Coronary artery disease Father Stomach cancer Maternal Grandfather Stroke Maternal Grandmother Coronary artery disease Mother Breast cancer Mother's Sister Breast cancer Other aunt Coronary artery disease Paternal Grandfather Stroke Paternal Grandmother No Known Problems Sister Relation Name Status Comments Father Maternal Grandfather Maternal Grandmother Mother Mother's Sister Other aunt Paternal Grandfather Paternal Grandmother Sister Alive Social History Tobacco Use Types Packs/Day Years Used Date Smoking Tobacco: Never Smokeless Tobacco: Never Tobacco Cessation:Counseling Given: No Alcohol Use Standard Drinks/Week Comments No 0 (1 standard drink = 0.6 oz pur e alcohol) AUDIT-C Answer Date Recorded Q1: How often do you have a drink containing alcohol? Never 08/29/2024 Q2: How many drinks containi ng alcohol do you have on a typical day when you are drinking? Patient does not drink Q3: How often do you have si x or more drinks on one occasion? 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 Not on file Not on file Not on file Obstetrics History Para Term AB IAB SAB Ectopic Multiple Livin g Live Births 2 2 2 Date Outcome GA Total Labor Labor/2nd/3rd Weight Sex Type Anes PTL Catalina A1 A5 Name Clin Term Term Last Filed Vital Signs Vital Sign Reading Time Taken Comments Blood Pressure 127/70 08/29/2024 10:01 AM WET END SUPERVISOR Pulse 72 08/29/2024 10:01 AM WET END SUPERVISOR Temperature 36.2 C (97.1 F) 08/29/2024 10:01 AM WET END SUPERVISOR Respiratory Rate 18 08/29/2024 10:01 AM WET END SUPERVISOR Oxygen Saturation 97% 08/29/2024 10:01 AM WET END SUPERVISOR Inhaled Oxygen Concentration - - Weight 88.5 kg (195 lb) 08/29/2024 10:01 AM WET END SUPERVISOR no shoes Height 165.1 cm (5' 5) 08/29/2024 10:01 AM WET END SUPERVISOR no shoes Body Mass Index 32.45 08/29/2024 10:01 AM WET END SUPERVISOR Plan of Treatment Health Maintenance Due Date Last Done Comments Depression Screening 1941 Fall Risk Assessment 1941 DTaP/Tdap/Td Vaccine (1 - Tdap) 02/25/1952 Hepatitis B Screening 1959 Well Visit 65+ 2006 Pneumococcal vaccine 65+ (2 of 2 - PPSV23) 07/02/2015 07/02/2014 Zoster Vaccine (2 of 3) 04/04/2020 02/08/2020 Covid-19 Vaccine (2023-2 5 season) 2024 05/18/2022, 05/04/2021, 04/14/2021, Additional history exists Influenza Vaccine (#1) 2025 2, 05/04/2021, 05/23/2020, Additional history exists Osteoporosis Screening-Bone Density Scan 09/29/2025 09/29/2023 Procedures Procedure Name Priority Date/Time Associated Diagnosis Comments SCREENING MAMMOGRAM RIGHT W PRANAV UNILATERAL ONLY Schedule Routine, Read Routine (OP Routine) 02/19/2025 9:54 AM CDT Encounter for screening mammogram for breast cancer DEXA AXIAL SKELETON BONE DENSITY 1 OR MORE SITES Schedule Routine, Read Routine (OP Routine) 09/29/2023 8:25 AM WET END SUPERVISOR Ductal carcinoma in situ (DCIS) of breast, unspecified laterality buttermaker helper (current) use of aromatase inhibitors from Last 3 Months or Most Recently Relevant to Health Maintenance Results * Screening Mammogram Right W Pranav (02/19/2025 9:54 AM CDT) Anatomical Region Laterality Modality Breast Right Mammography Impressions 02/19/2025 10:21 AM CDT No evidence of malignancy. OVERALL BI-RADS FINAL ASSESSMENT: 1 - Negative RECOMMENDATION: Recommend right breast annual screening mammography. Narrative 02/19/2025 10:21 AM CDT EXAMINATION: Screening Mammogram Right W Pranav: 02/19/2025 COMPARISON: Relevent prior studies available at the time of interpretation were reviewed, including the most recent mammogram on: 02/16/2024. TECHNIQUE: Mammography was performed with 2D and digital breast tomosynthesis (DBT) images. CAD was utilized. BREAST PARENCHYMAL COMPOSITION: There are scattered areas of fibroglandular density. FINDINGS: There is no suspicious mass, calcification, or architectural distortion.The are benign right breast calcifications. Sandy Virgen NP IM MAMMO PROCEDURES Final Result * Dexa Axial Skeleton Bone Density 1 or 2 Site (09/29/2023 8:25 AM WET END SUPERVISOR) Anatomical Region Laterality Modality Body N/A Mammography 09/29/2023 8:31 AM WET END SUPERVISOR Narrative 09/29/2023 8:32 AM WET END SUPERVISOR EXAM DESCRIPTION: DEXA AXIAL SKELETON BONE DENSITY 1 OR MORE SITES REASON FOR STUDY: 83 y/o year old F with given history of: hx breast cancer, monitoring while on medication. Post menopausal status. Patient has taken/is taking Fosamax, hormone replacement therapy, vitamin-D and calcium. History of carcinoma Dependency Counselor/Model: [employer] A (S/N [id number]) CLINICAL INFORMATION: Current height: 64 inches Maximum height: 64.5 inches Weight: 203.8 pounds Risk factors: None COMPARISON: None available FINDINGS: AP LUMBAR SPINE L1-L4: Total BMD is 1.121 g/cm2 T-score is 0.7 LEFT HIP: Total BMD is 0.827 g/cm2 T-score is -0.9 Femoral neck BMD is 0.659 g/cm2 T-score is -1.7 FRAX: 10 year risk for a major osteoporotic fracture is 13 %, 10 year risk for a hip fracture is 3.6 % IMPRESSION: Low bone mass REFERENCE: Bone mineral density: Normal (T-score above or = -1.0) Low bone mass (T-score between -1.0 and -2.5) replaces the previously used term osteopenia Osteoporosis (T-score = or below -2.5) Please see below follow up recommendations. Medical evaluation for secondary causes of low bone mineral density may be appropriate. FRAX is a World Health Organization validated fracture risk assessment tool that calculates a person's 10 year probability of a major osteoporosis related fracture and hip fracture. According to the National Osteoporosis Foundation guidelines, postmenopausal women and men age 50 or older with low bone mass and a 10 year probability of a major osteoporosis related fracture = or greater than 20% or a 10 year probability of a hip fracture = or greater than 3% should be considered for pharmacological treatment for the prevention of osteoporosis. For further information, including treatment recommendations, please refer to the 2019 ISCD Official Positions (http://www.iscd.org) and the NOF's Clinician's Guide to Prevention and Treatment of Osteoporosis (http://www.nof.org/professionals/clinical-guidelines) THIS IS AN ELECTRONICALLY VERIFIED FINAL REPORT 09/29/2023 8:32 AM - Electronically signed by Candice Saenz M.D. TW: TW Report ID: [id number] Reading Location: [id number] Procedure Note Candice Saenz MD - 09/29/2023 EXAM DESCRIPTION: DEXA AXIAL SKELETON BONE DENSITY 1 OR MORE SITES REASON FOR STUDY: 83 y/o year old F with given history of: hx breast cancer, monitoring while on medication. Post menopausal status. Patienthas taken/is taking Fosamax, hormone replacement therapy, vitamin-D andcalcium. History of carcinoma Dependency Counselor/Model: [employer] A (S/N [id number]) CLINICAL INFORMATION: Current height: 64 inches Maximum height: 64.5 inches Weight: 203.8 pounds Risk factors: None COMPARISON: None available FINDINGS: AP LUMBAR SPINE L1-L4: Total BMD is 1.121 g/cm2 T-score is 0.7 LEFT HIP: Total BMD is 0.827 g/cm2 T-score is -0.9 Femoral neck BMD is 0.659 g/cm2 T-score is -1.7 FRAX: 10 year risk for a major osteoporotic fracture is 13 %, 10 year risk for ahip fracture is 3.6 % IMPRESSION: Low bone mass REFERENCE: Bone mineral density: Normal (T-score above or = -1.0) Low bone mass (T-score between -1.0 and -2.5) replaces thepreviously used term osteopenia Osteoporosis (T-score = or below -2.5) Please see below follow up recommendations. Medical evaluation forsecondary causes of low bone mineral density may be appropriate. FRAX is a World Health Organization validated fracture risk assessmenttool that calculates a person's 10 year probability of a major osteoporosisrelated fracture and hip fracture. According to the National OsteoporosisFoundation guidelines, postmenopausal women and men age 50 or older with low bonemass and a 10 year probability of a major osteoporosis related fracture = or greater than 20% or a 10 year probability of a hip fracture = or greaterthan 3% should be considered for pharmacological treatment for the preventionof osteoporosis. For further information, including treatment recommendations, please referto the 2019 ISCD Official Positions (http://www.iscd.org) and the NOF's Clinician's Guide to Prevention and Treatment of Osteoporosis (http://www.nof.org/professionals/clinical-guidelines) THIS IS AN ELECTRONICALLY VERIFIED FINAL REPORT 09/29/2023 8:32 AM - Electronically signed by Candice Saenz M.D. TW: TW Report ID: [id number] Reading Location: [place] [address] Jonah Carmona DO IMG DXA PROCEDURES Final Res ult from Last 3 Months or Most Recently Relevant to Health Maintenance Insurance [place] [address] [place] [address] MEDICARE SUPPLEMENT MEDICARE RAILROAD BLUE CROSS MEDICARE SUPPLEMENT [facility] MEDIC[facility] RAILROAD Care Teams Sport Shoe Spike Assembler Relationship Specialty Start Date End Date Hernandez Colon MD PCP - General Internal Medicine 05/06/18
--- OUTSIDE RECORDS SUMMARY | 2025-02-27 14:24 | XMS_ITS | Referral Summary ---
Author Organization [facility] Address [address] [place] [address] Care Team Providers Care Natural Gas Shothole Driller Name Role Phone Hernandez Colon MD Primary Care Provider [phone] Encounters Date Type Department Care Team Description 02/19/2025 9:43 AM CDT - 02/19/2025 11:59 PM CDT Hospital Encounter [facility] Medical Office Bl [address] [place] [address] Encounter for screening mammogram for breast cancer Discharge Disposition: Discharge to home or self care from Last 3 Months Allergies Active Allergy Reactions Criticality Noted Date [...] (DCIS) of breast 2017 Abnormal mammogram 11/23/2014 Immunizations Immunization Administration Dates Next Due Influenza, Quadrivalent, Spl it, Preservative Free, Intramuscular 05/18/2022 Influenza, Trivalent, High D ose, Split, Preservative Free, Intramuscular 05/17/2019 Influenza, Trivalent, IM (MDV) 05/11/2020 Influenza, Unspecified 05/04/2021,05/23/2020 Pfizer SARS-CoV-2 Monovalent Vaccination (12+ Yrs) PURPLE 05/04/2021,04/14/2021,09/23/2020,09/02,09/02/2020 Pfizer Sars-Cov-2 Bivalent V accination (12+ YRS) 05/18/2022 Pneumococcal Conjugate PCV 13 07/02/2014 ZOSTER LIVE 02/08/2020 Social History Tobacco Use Types Packs/Day Years [...] on file Legal Sex Female 5:44 AM TIE UP WORKER Gender Identity Not on file Sexual Orientation Not on file Occupation Industry Job Start Date Job End Date 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 Not on file Not on file Not on file Last Filed Vital Signs Vital Sign Reading Time Taken Comments Blood Pressure 127/70 08/29/2024 10:01 AM TIE UP WORKER Pulse 72 08/29/2024 10:01 AM TIE UP WORKER Temperature 36.2 C (97.1 F) 08/29/2024 10:01 AM TIE UP WORKER Respiratory Rate 18 08/29/2024 10:01 AM TIE UP WORKER Oxygen Saturation 97% 08/29/2024 10:01 AM TIE UP WORKER Inhaled Oxygen Concentration - - Weight 88.5 kg (195 lb) 08/29/2024 10:01 AM TIE UP WORKER no shoes Height 165.1 cm (5' 5) 08/29/2024 10:01 AM TIE UP WORKER no shoes Body Mass Index 32.45 08/29/2024 10:01 AM TIE UP WORKER Plan of Treatment Not on file Procedures Procedure Name Priority Date/Time Associated Diagnosis Comments SCREENING MAMMOGRAM RIGHT W PRANAV UNILATERAL ONLY Schedule Routine, Read Routine (OP Routine) 02/19/2025 9:54 AM CDT Encounter for screening mammogram for breast cancer DEXA AXIAL SKELETON BONE DENSITY 1 OR MORE SITES Schedule Routine, Read Routine (OP Routine) 09/29/2023 8:25 AM TIE UP WORKER Ductal carcinoma in situ (DCIS) of breast, unspecified laterality skilled nursing (current) use of aromatase inhibitors from Last [...] distortion.The are benign right breast calcifications. Sandy Rosalinda Virgen NP IMG MAMMO PROCEDURES Final Result * Dexa Axial Skeleton Bone Density 1 or 2 Site (09/29/2023 8:25 AM TIE UP WORKER) Anatomical Region Laterality Modality Body N/A Mammography 09/29/2023 8:31 AM TIE UP WORKER Narrative 09/29/2023 8:32 AM TIE UP WORKER EXAM DESCRIPTION: DEXA AXIAL SKELETON BONE DENSITY 1 OR MORE SITES REASON FOR STUDY: 83 y/o year old F with given history of: hx breast cancer, monitoring while on medication. Post menopausal status. Patient has taken/is taking Fosamax, hormone replacement therapy, vitamin-D and calcium. 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 TW: TW Report ID: [id number] Reading Location: [id number] Procedure Note Candice Saenz MD - 09/29/2023 EXAM DESCRIPTION: DEXA AXIAL SKELETON BONE DENSITY 1 OR MORE SITES REASON FOR STUDY: 83 y/o year old F with given history of: hx breast cancer, monitoring while on medication. Post menopausal status. Patienthas taken/is taking Fosamax, hormone replacement therapy, vitamin-D andcalcium. History of carcinoma Cuff Cutter/Model: [employer] A (S/N [id number]) CLINICAL INFORMATION: Current height: 64 inches Maximum [...] Electronically signed by Candice Saenz M.D. TW: MARTINEZ Report ID: [id number] Reading Location: [place] [address] Jonah Carmona DO IMG DXA PROCEDURES Final Res ult from Last 3 Months or Most Recently Relevant to Health [place] [address] [facility] MEDICARE SUPPLEMENT MEDICARE RAILROAD BLUE CROSS MEDICARE SUPPLEMENT [facility] MEDICARE RAILROAD Care Teams Natural Gas Shothole Driller Relationship Specialty Start Date End Date Hernandez Colon MD PCP - General Internal Medicine 05/06/18
--- OUTSIDE RECORDS SUMMARY | 2025-02-27 14:24 | XMS_ITS | Continuity of Care Document ---
Author Organization [facility] [place] [address] [facility] [address] [place] [address] Phone Care Team Providers Care Access Representative Name Role Phone [facility] Unavailable Unavail able Silviano Weir Unavailable Unavailable Procedures Procedure Date Progressive Lens, Plastic Frames Deluxe Tint Photochromatic, Plastic Medical Tax Eye Exam & Treatment Refraction Eye Exam & Treatment Refraction Eye Exam & Treatment Vision Svcs Frames Purchases Progressive Lens, Plastic Anti-reflective Coating Tax - Medical Eye Exam & Treatment Visual Functional Status Assessed Refraction Advance Directives Directive Yes / No Effective Date File Name No Information Encounters Encounter Description Practice Location Reason(s) For Visit Diagnoses Date Provider Providers Copied on Encounter [facility], [address], [place], [place], [id number], [place] tel:[phone] SEC [facility] No Information 3201 0 [facility] . [address] [facility], [address], [place], [place], [id number], [place]. tel:[phone] Referring Provider: Hanna Rodriguez, [facility] [address], [place], [address]. tel:[phone] g Provider: Silviano Weir, [facility], [place], [address]. tel:[phone] [facility], [address], [place], [place], [id number], [place] tel:[phone] [facility] No Information Sep-0 2-201 0 Jennifer Adorno [address], [place], [address], [place]. tel:[phone] [facility], [address] [place] [address] [address], [place], [place], [id number], [place] tel:[phone] [facility] No Information Sep-0 3-200 9 Jennifer Ferreira. [address] [facility] [address] , [address], [place], [address], [place]. tel:[phone] [facility], [address] [place] [address] [address], [place], [place], [id number], [place] tel:[phone] [facility] No Information Willian-2 4-200 8 Jennifer Ferreiar. [address] [facility] [address] , [address], [place], [address], [place]. tel:[phone] [facility], [address], [place], [place], [id number], [place] tel:[phone] SEC [facility] No Information Willian-0 6-200 7 [facility] . [address] [facility], [address], [place], [place], [id number], [place]. tel:[phone] Referring Provider: Hanna Rodriguez, [address] [facility] [address], [place], [address]. tel:[phone] olivas Provider: Celi Salgado, [address] [facility], [place], [address]. tel:[phone] 5296 [facility], [address], [place], [place], [id number], [place] tel:[phone] SEC [facility] No Information 5-200 7 Rodriguez Hanna. [address] [facility] , [address], [place], [address], [place]. tel:[phone] Family History Family Member Type Diagnosis Age At Onset No Information Payers Payer name Insurance type Covered republican ID Authoriza tion(s) No Information Social History Type Description Quantity Date Captured Comments Sex Female Smoking Status No Information Chief Complaint And Reason For Visit No Information Reason For Referral Reason For Referral No Information History Of Present Illness Encounter Date Complaint History Of Prese nt Illness No Information Functional Status Date Functional Assessmen t No Information Instructions Date Instruction Additional Infor mation No Information Assessments Type Assessment Date No Information Patient Care Teams Name Effective Dates (start - stop) Status Members No Information
--- OUTSIDE RECORDS SUMMARY | 2025-02-27 14:24 | XMS_ITS | Data Portability ---
Author Organization [email or web address], Main Office Address [address] [place] [address] Care Team Providers Care Allergist/Immunologist Physician Name Role Phone NENITA COLON Primary Care Provider NENITA COLON Referring Provider Assessment Encounter Date Assessment Date Assessment LastModified by Organization Details LastModified Time 03/09/2023 03/09/2023 Diagnosis in assessment plan have been discussed blood work has been ordered to be done prior to her next visit continue current therapy follow-up in 6 months doing well [email or web address] Not available 03/09/2023 10:49:03 Plan of Treatment Reminders Order Date Submit Date Provider Last Modified By Organization Details Last Modified Time Details Appointments None recorded. Lab vitamin D, 25-hydrox y, total, serum 023 023 [facility] (Lab), [address] [place], [address], 4 11:12:51 CBC w/ auto diff [address] [facility] (Lab), [address] [place], [address], 4 10:33:45 lipid panel, serum [address] [facility] (Lab), [address] [place], [address], 4 11:05:55 CMP, serum or plasma 023 023 MARIA GUADALUPE [facility] (Lab), [address] [place], [address], 11:06:06 Referral None recorded. Procedures None recorded. Surgeries None recorded. Imaging None recorded. Medication Orders None recorded. Patient TargetsNo targets recorded. Patient InstructionsNo instructions recorded. Reason for Referral None Reported. Results Created Date Observation Date Name Description Value Unit Range Abnormal Flag Note LastModifiedBy Organization Detail LastModifiedTime 02/12/20 22 02/11/2022 VITAM IN D 25-HY DROXY vd25oh 26.8 NG/mL 30-100 low Vitam in D Statu s: Defic ient: <20 ng/mL Insuf ficie nt: 20-29 ng/mL Suffi cient : 30-10 0 ng/mL Not Available [facility] (Lab) [address] [place], [address], 02/11/2022 13:03:17 02/12/20 22 02/11/2022 LIPID PANEL LDL cholesterol, calculated 34 mg/dL 0-130 NIH ERIN NSUS REPOR T RECOM MENDA TIONS FOR LDL: ADULT CHILD LOW RISK <130 <110 (OPTI MAL LDL) <100 ----- BORDE RLINE : 130-1 59 ----- HIGH RISK: >160 >130 A TRIGL YCERI DE RESUL T >400 INVAL IDATE S THE CALCU LATIO N FOR LDL FRACT IONAT ION - THE LDL RESUL T WILL NOT BE REPOR JUANA. Not Available [facility] (Lab) [address] [place], [address], 02/11/2022 12:47:32 02/12/20 22 02/11/2022 LIPID PANEL cholesterol 148 mg/dL 140-19 9 NIH ERIN NSUS RECOM MENDA TION FOR ZEENAT STERO L: ADULT CHILD LOW RISK: <200 <170 BORDE RLINE : <200- 239 ----- HIGH RISK: >240 >200 Not Available [facility] (Lab) [address] [place], [address], 02/11/2022 12:47:32 02/12/20 22 02/11/2022 LIPID PANEL triglyceride s 342 mg/dL 0-150 high NIH ERIN NSUS REPOR T RECOM MENDA TION FOR TRIGL YCERI NELSON: ADULT CHILD LOW RISK: <150 ----- BODER LINE: 150-1 99 ----- HIGH RISK: >200 ----- Not Available [facility] (Lab) [address] [place], [address], 02/11/2022 12:47:32 02/12/20 22 02/11/2022 LIPID PANEL HDL cholesterol 46 mg/dL 40- Not Available [facility] (Lab) [address] [place], [address], 02/11/2022 12:47:32 09/01/19 23 09/01/2022 COMPR EHENS STORM METAB OLIC PANEL glucose 157 mg/dL 70-99 high Not Available [facility] (Lab) [address] [place], [address], 09/01/2022 17:23:00 09/01/19 23 09/01/2022 COMPR EHENS STORM METAB OLIC PANEL sodium 139 mmol/ L 137-14 5 Not Available [facility] (Lab) [address] [place], [address], 09/01/2022 17:23:00 09/01/1909/01/2022 COMPR EHENS STORM METAB OLIC PANEL potassium 4.4 mmol/ L 3.5-5. 1 Not Available [facility] (Lab) [address] [place], [address], 09/01/2022 17:23:00 09/01/1909/01/2022 COMPR EHENS STORM METAB OLIC PANEL chloride 101 mmol/ L 98-107 Not Available [facility] (Lab) [address] [place], [address], 09/01/2022 17:23:00 09/01/19 23 09/01/2022 COMPR EHENS STORM METAB OLIC PANEL carbon dioxide 26 mmol/ L 22-30 Not Available [facility] (Lab) [address] [place], [address], 09/01/2022 17:23:00 09/01/19 23 09/01/2022 COMPR EHENS STORM METAB OLIC PANEL anion gap 16.4 mmol/ L 14-22 Not Available [facility] (Lab) [address] [place], [address], 09/01/2022 17:23:00 09/01/19 23 09/01/2022 COMPR EHENS STORM METAB OLIC PANEL BUN 36 mg/dL 8-19 high Not Available [facility] (Lab) [address] [place], [address], 09/01/2022 17:23:00 09/01/19 23 09/01/2022 COMPR EHENS STORM METAB OLIC PANEL creatinine 1.28 mg/dL 0.66-1 .25 high Not Available [facility] (Lab) [address] [place], [address], 09/01/2022 17:23:00 09/01/19 23 09/01/2022 COMPR EHENS STORM METAB OLIC PANEL GFR 40 Refer ence Range : Reva ge GFR Healt hy Adult : >60 mL/mi n/1.7 3 m2 Chron ic Kidne y Disea se: 15-60 mL/mi n/1.7 3 m2 Kidne y Failu re: <15/m L/min /1.73 m2 www.n iddk. nih.g ov The MDRD study equat ion has not been valid ated in child marcellus <18 years of age; pregn ant women ; the elder ly >85 years of age; or in some racia l or ethni c subgr oups, such as Hispa nics. Outsi de the valid ated lynda eters , estim ated GFR is less accur ate, requi ring clini shandra judgm ent on a case- by-ca se basis . Clini shandra inter preta tion for other races and ages must be made by the clini lauren. The MDRD study equat ion has not been valid ated for the evalu ation of serum creat inine relat ed to nutri brittaney l statu s or medic ation usage . For perso ns <18 years of age, a pedia tric GFR calcu lator is avail able on the [facility] websi te: https ://long w.sonny evangelistay.o rg/pr ofess ional s/kdo qi/gf r_cal culat or Not Available [facility] (Lab) [address] [place], [address], 09/01/2022 17:23:00 09/01/19 23 09/01/2022 COMPR EHENS STORM METAB OLIC PANEL alkaline phosphatase 55 U/L 38-126 Not Available [facility] (Lab) [address] [place], [address], 09/01/2022 17:23:00 09/01/1909/01/2022 COMPR EHENS STORM METAB OLIC PANEL alanine aminotransfe rase 32 U/L 0-35 Not Available [facility] (Lab) [address] [place], [address], 09/01/2022 17:23:00 09/01/19 23 09/01/2022 COMPR EHENS STORM METAB OLIC PANEL aspartate aminotransfe rase 35 U/L 15-37 Not Available [facility] (Lab) [address] [place], [address], 09/01/2022 17:23:00 09/01/19 23 09/01/2022 COMPR EHENS STORM METAB OLIC PANEL bilirubin, total 0.80 mg/dL 0.20-1 .30 Not Available [facility] (Lab) [address] [place], [address], 09/01/2022 17:23:00 09/01/19 23 09/01/2022 COMPR EHENS STORM METAB OLIC PANEL calcium 10.2 mg/dL 8.4-10 .2 Not Available [facility] (Lab) [address] [place], [address], 09/01/2022 17:23:00 09/01/19 23 09/01/2022 COMPR EHENS STORM METAB OLIC PANEL total protein 7.4 g/dL 6.3-8. 2 Not Available [facility] (Lab) [address] [place], [address], 09/01/2022 17:23:00 09/01/1909/01/2022 COMPR EHENS STORM METAB OLIC PANEL albumin 4.4 g/dL 3.0-4. 4 Not Available [facility] (Lab) [address] [place], [address], 09/01/2022 17:23:00 09/01/1909/01/2022 COMPR EHENS STORM METAB OLIC PANEL globulin 3.0 g/dL 2.6-4. 2 Not Available [facility] (Lab) [address] [place], [address], 09/01/2022 17:23:00 09/01/19 23 09/01/2022 COMPR EHENS STORM METAB OLIC PANEL A/G ratio 1.5 ratio 1.0-2. 0 Not Available [facility] (Lab) [address] [place], [address], 09/01/2022 17:23:00 09/01/1909/01/2022 LIPID PANEL cholesterol 186 mg/dL 140-19 9 NIH ERIN NSUS RECOM MENDA TION FOR ZEENAT STERO L: ADULT CHILD LOW RISK: <200 <170 BORDE RLINE : <200- 239 ----- HIGH RISK: >240 >200 Not Available [facility] (Lab) [address] [place], [address], 09/01/2022 17:22:56 09/01/19 23 09/01/2022 LIPID PANEL triglyceride s 164 mg/dL 0-150 high NIH ERIN NSUS REPOR T RECOM MENDA TION FOR TRIGL YCERI NELSON: ADULT CHILD LOW RISK: <150 ----- BODER LINE: 150-1 99 ----- HIGH RISK: >200 ----- Not Available [facility] (Lab) [address] [place], [address], 09/01/2022 17:22:56 09/01/19 23 09/01/2022 LIPID PANEL HDL cholesterol 74 mg/dL 40- Not Available [facility] (Lab) [address] [place], [address], 09/01/2022 17:22:56 09/01/19 23 09/01/2022 LIPID PANEL LDL cholesterol, calculated 79 mg/dL 0-130 NIH ERIN NSUS REPOR T RECOM MENDA TIONS FOR LDL: ADULT CHILD LOW RISK <130 <110 (OPTI MAL LDL) <100 ----- BORDE RLINE : 130-1 59 ----- HIGH RISK: >160 >130 A TRIGL YCERI DE RESUL T >400 INVAL IDATE S THE CALCU LATIO N FOR LDL FRACT IONAT ION - THE LDL RESUL T WILL NOT BE REPOR JUANA. Not Available [facility] (Lab) [address] [place], [address], 09/01/2022 17:22:56 09/01/1909/01/2022 VITAM IN D 25-HY DROXY vd25oh 34.4 NG/mL 30-100 Vitam in D Statu s: Defic ient: <20 ng/mL Insuf ficie nt: 20-29 ng/mL Suffi cient : 30-10 0 ng/mL Not Available [facility] (Lab) [address] [place], [address], 09/01/2022 11:40:43 09/01/1909/01/2022 CBC/C OMPLE TE BLD COUNT W/DIF F white blood cells 5.4 x10'3 /uL 4.2-10 .8 Not Available [facility] (Lab) [address] [place], [address], 09/01/2022 10:28:42 09/01/19 23 09/01/2022 CBC/C OMPLE TE BLD COUNT W/DIF F red blood cells 4.32 x10'6 /uL 3.80-5 .20 Not Available [facility] (Lab[facility] [address] [facility] [place], [address], 09/01/2022 10:28:42 09/01/1909/01/2022 CBC/C OMPLE TE BLD COUNT W/DIF F hemoglobin 13.1 g/dL 12.0-1 5.6 Not Available [facility] (Lab[facility] [address] [facility] [place], [address], 09/01/2022 10:28:42 09/01/1909/01/2022 CBC/C OMPLE TE BLD COUNT W/DIF F hematocrit 40.4 % 35.7-4 5.7 Not Available [facility] (Lab) [address] [place], [address], 09/01/2022 10:28:42 09/01/1909/01/2022 CBC/C OMPLE TE BLD COUNT W/DIF F mean red cell volume 93.5 fL 82.0-9 9.0 Not Available [facility] (Lab) [address] [place], [address], 09/01/2022 10:28:42 09/01/1909/01/2022 CBC/C OMPLE TE BLD COUNT W/DIF F mean red cell hemoglobin 30.3 pg 27.0-3 3.0 Not Available [facility] (Lab) [address] [place], [address], 09/01/2022 10:28:42 09/01/19 23 09/01/2022 CBC/C OMPLE TE BLD COUNT W/DIF F mean RBC HGB concentratio n 32.4 g/dL 31.0-3 6.0 Not Available [facility] (Lab) [address] [place], [address], 09/01/2022 10:28:42 09/01/19 23 09/01/2022 CBC/C OMPLE TE BLD COUNT W/DIF F red cell distribution width 13.1 % 11.8-1 5.5 Not Available [facility] (Lab) [address] [place], [address], 09/01/2022 10:28:42 09/01/19 23 09/01/2022 CBC/C OMPLE TE BLD COUNT W/DIF F platelets 206 x10'3 /uL 150-40 0 Not Available [facility] (Lab) [address] [place], [address], 09/01/2022 10:28:42 09/01/19 23 09/01/2022 CBC/C OMPLE TE BLD COUNT W/DIF F mean platelet volume 9.8 fL 9.0-12 .4 Not Available [facility] (Lab) [address] [place], [address], 09/01/2022 10:28:42 09/01/19 23 09/01/2022 CBC/C OMPLE TE BLD COUNT W/DIF F neutrophils 50.2 % 39.0-7 2.0 Not Available [facility] (Lab) [address] [place], [address], 09/01/2022 10:28:42 09/01/19 23 09/01/2022 CBC/C OMPLE TE BLD COUNT W/DIF F lymphocytes 29.5 % 16.0-4 7.0 Not Available [facility] (Lab) [address] [place], [address], 09/01/2022 10:28:42 09/01/19 23 09/01/2022 CBC/C OMPLE TE BLD COUNT W/DIF F monocytes 9.5 % 5.0-12 .0 Not Available [facility] (Lab) [address] [place], [address], 09/01/2022 10:28:42 09/01/19 23 09/01/2022 CBC/C OMPLE TE BLD COUNT W/DIF F eosinophils 9.1 % 1.0-7. 0 high Not Available [facility] (Lab) [address] [place], [address], 09/01/2022 10:28:42 09/01/19 23 09/01/2022 CBC/C OMPLE TE BLD COUNT W/DIF F basophils 1.5 % 0.0-2. 0 Not Available [facility] (Lab) [address] [place], [address], 09/01/2022 10:28:42 09/01/19 23 09/01/2022 CBC/C OMPLE TE BLD COUNT W/DIF F immature granulocytes 0.2 % 0.00-0 .50 Not Available [facility] (Lab) [address] [place], [address], 09/01/2022 10:28:42 09/01/19 23 09/01/2022 CBC/C OMPLE TE BLD COUNT W/DIF F neutrophils, absolute count 2.71 x10'3 /uL 1.5-8. 0 Not Available [facility] (Lab) [address] [place], [address], 09/01/2022 10:28:42 09/01/19 23 09/01/2022 CBC/C OMPLE TE BLD COUNT W/DIF F lymphocytes, absolute count 1.59 x10'3 /uL 1.07-3 .43 Not Available [facility] (Lab) [address] [place], [address], 09/01/2022 10:28:42 09/01/19 23 09/01/2022 CBC/C OMPLE TE BLD COUNT W/DIF F monocytes, absolute count 0.51 x10'3 /uL 0.29-0 .99 Not Available [facility] (Lab) [address] [place], [address], 09/01/2022 10:28:42 09/01/19 23 09/01/2022 CBC/C OMPLE TE BLD COUNT W/DIF F eosinophils, absolute count 0.49 x10'3 /uL 0.02-0 .53 Not Available [facility] (Lab) [address] [place], [address], 09/01/2022 10:28:42 09/01/19 23 09/01/2022 CBC/C OMPLE TE BLD COUNT W/DIF F basophils, absolute count 0.08 x10'3 /uL 0.01-0 .08 Not Available [facility] (Lab) [address] [place], [address], 09/01/2022 10:28:42 09/01/19 23 09/01/2022 CBC/C OMPLE TE BLD COUNT W/DIF F immature granulocytes ,absolute 0.01 x10'3 /uL 0.00-0 .05 Not Available [facility] (Lab) [address] [place], [address], 09/01/2022 10:28:42 09/01/19 23 09/01/2022 CBC/C OMPLE TE BLD COUNT W/DIF F nucleated red blood cells 0.0 % -0 Not Available [facility] (Lab) [address] [place], [address], 09/01/2022 10:28:42 09/01/19 23 09/01/2022 CBC/C OMPLE TE BLD COUNT W/DIF F NRBC# 0.00 x10'3 /uL Not Available [facility] (Lab) [address] [place], [address], 09/01/2022 10:28:42 09/01/19 24 09/01/2023 CBC/C OMPLE TE BLD COUNT W/DIF F white blood cells 5.0 x10'3 /uL 4.2-10 .8 Not Available [facility] (Lab) [address] [place], [address], 09/01/2023 10:33:45 09/01/19 24 09/01/2023 CBC/C OMPLE TE BLD COUNT W/DIF F red blood cells 4.22 x10'6 /uL 3.80-5 .20 Not Available [facility] (Lab) [address] [place], [address], 09/01/2023 10:33:45 09/01/19 24 09/01/2023 CBC/C OMPLE TE BLD COUNT W/DIF F hemoglobin 13.2 g/dL 12.0-1 5.6 Not Available [facility] (Lab) [address] [place], [address], 09/01/2023 10:33:45 09/01/19 24 09/01/2023 CBC/C OMPLE TE BLD COUNT W/DIF F hematocrit 39.9 % 35.7-4 5.7 Not Available [facility] (Lab) [address] [place], [address], 09/01/2023 10:33:45 09/01/19 24 09/01/2023 CBC/C OMPLE TE BLD COUNT W/DIF F mean red cell volume 94.5 fL 82.0-9 9.0 Not Available [facility] (Lab) [address] [place], [address], 09/01/2023 10:33:45 09/01/19 24 09/01/2023 CBC/C OMPLE TE BLD COUNT W/DIF F mean red cell hemoglobin 31.3 pg 27.0-3 3.0 Not Available [facility] (Lab) [address] [place], [address], 09/01/2023 10:33:45 09/01/19 24 09/01/2023 CBC/C OMPLE TE BLD COUNT W/DIF F mean RBC HGB concentratio n 33.1 g/dL 31.0-3 6.0 Not Available [facility] (Lab) [address] [place], [address], 09/01/2023 10:33:45 09/01/1909/01/2023 CBC/C OMPLE TE BLD COUNT W/DIF F red cell distribution width 12.6 % 11.8-1 5.5 Not Available [facility] (Lab) [address] [place], [address], 09/01/2023 10:33:45 09/01/19 24 09/01/2023 CBC/C OMPLE TE BLD COUNT W/DIF F platelets 223 x10'3 /uL 150-40 0 Not Available [facility] (Lab) [address] [place], [address], 09/01/2023 10:33:45 09/01/19 24 09/01/2023 CBC/C OMPLE TE BLD COUNT W/DIF F mean platelet volume 10.1 fL 9.0-12 .4 Not Available [facility] (Lab) [address] [place], [address], 09/01/2023 10:33:45 09/01/19 24 09/01/2023 CBC/C OMPLE TE BLD COUNT W/DIF F neutrophils 52.6 % 39.0-7 2.0 Not Available [facility] (Lab) [address] [place], [address], 09/01/2023 10:33:45 09/01/19 24 09/01/2023 CBC/C OMPLE TE BLD COUNT W/DIF F lymphocytes 28.2 % 16.0-4 7.0 Not Available [facility] (Lab) [address] [place], [address], 09/01/2023 10:33:45 09/01/19 24 09/01/2023 CBC/C OMPLE TE BLD COUNT W/DIF F monocytes 8.9 % 5.0-12 .0 Not Available [facility] (Lab) [address] [place], [address], 09/01/2023 10:33:45 09/01/19 24 09/01/2023 CBC/C OMPLE TE BLD COUNT W/DIF F eosinophils 8.3 % 1.0-7. 0 high Not Available [facility] (Lab) [address] [place], [address], 09/01/2023 10:33:45 09/01/19 24 09/01/2023 CBC/C OMPLE TE BLD COUNT W/DIF F basophils 1.6 % 0.0-2. 0 Not Available [facility] (Lab) [address] [place], [address], 09/01/2023 10:33:45 09/01/19 24 09/01/2023 CBC/C OMPLE TE BLD COUNT W/DIF F immature granulocytes 0.4 % 0.00-0 .50 Not Available [facility] (Lab) [address] [place], [address], 09/01/2023 10:33:45 09/01/19 24 09/01/2023 CBC/C OMPLE TE BLD COUNT W/DIF F neutrophils, absolute count 2.64 x10'3 /uL 1.5-8. 0 Not Available [facility] (Lab) [address] [place], [address], 09/01/2023 10:33:45 09/01/19 24 09/01/2023 CBC/C OMPLE TE BLD COUNT W/DIF F lymphocytes, absolute count 1.42 x10'3 /uL 1.07-3 .43 Not Available [facility] (Lab) [address] [place], [address], 09/01/2023 10:33:45 09/01/19 24 09/01/2023 CBC/C OMPLE TE BLD COUNT W/DIF F monocytes, absolute count 0.45 x10'3 /uL 0.29-0 .99 Not Available [facility] (Lab) [address] [place], [address], 09/01/2023 10:33:45 09/01/19 24 09/01/2023 CBC/C OMPLE TE BLD COUNT W/DIF F eosinophils, absolute count 0.42 x10'3 /uL 0.02-0 .53 Not Available [facility] (Lab) [address] [place], [address], 09/01/2023 10:33:45 09/01/19 24 09/01/2023 CBC/C OMPLE TE BLD COUNT W/DIF F basophils, absolute count 0.08 x10'3 /uL 0.01-0 .08 Not Available [facility] (Lab) [address] [place], [address], 09/01/2023 10:33:45 09/01/19 24 09/01/2023 CBC/C OMPLE TE BLD COUNT W/DIF F immature granulocytes ,absolute 0.02 x10'3 /uL 0.00-0 .05 Not Available [facility] (Lab) [address] [place], [address], 09/01/2023 10:33:45 09/01/19 24 09/01/2023 CBC/C OMPLE TE BLD COUNT W/DIF F nucleated red blood cells 0.0 % -0 Not Available [facility] (Lab) [address] [place], [address], 09/01/2023 10:33:45 09/01/19 24 09/01/2023 CBC/C OMPLE TE BLD COUNT W/DIF F NRBC# 0.00 x10'3 /uL Not Available [facility] (Lab) [address] [place], [address], 09/01/2023 10:33:45 09/01/19 24 09/01/2023 VITAM IN D 25-HY DROXY vd25oh 35.5 NG/mL 30-100 Vitam in D Statu s: Defic ient: <20 ng/mL Insuf ficie nt: 20-29 ng/mL Suffi cient : 30-10 0 ng/mL Not Available [facility] (Lab) [address] [place], [address], 09/01/2023 11:05:00 09/01/19 24 09/01/2023 LIPID PANEL cholesterol 181 mg/dL 140-19 9 NIH ERIN NSUS RECOM MENDA TION FOR ZEENAT STERO L: ADULT CHILD LOW RISK: <200 <170 BORDE RLINE : <200- 239 ----- HIGH RISK: >240 >200 Not Available [facility] (Lab) [address] [place], [address], 09/01/2023 11:05:55 09/01/19 24 09/01/2023 LIPID PANEL triglyceride s 170 mg/dL 0-150 high NIH ERIN NSUS REPOR T RECOM MENDA TION FOR TRIGL YCERI NELSON: ADULT CHILD LOW RISK: <150 ----- BODER LINE: 150-1 99 ----- HIGH RISK: >200 ----- Not Available [facility] (Lab) [address] [place], [address], 09/01/2023 11:05:55 09/01/19 24 09/01/2023 LIPID PANEL HDL cholesterol 75 mg/dL 40- Not Available [facility] (Lab) [address] [place], [address], 09/01/2023 11:05:55 09/01/1909/01/2023 LIPID PANEL LDL cholesterol, calculated 72 mg/dL 0-130 NIH ERIN NSUS REPOR T RECOM MENDA TIONS FOR LDL: ADULT CHILD LOW RISK <130 <110 (OPTI MAL LDL) <100 ----- BORDE RLINE : 130-1 59 ----- HIGH RISK: >160 >130 A TRIGL YCERI DE RESUL T >400 INVAL IDATE S THE CALCU LATIO N FOR LDL FRACT IONAT ION - THE LDL RESUL T WILL NOT BE REPOR JUANA. Not Available [facility] (Lab) [address] [place], [address], 09/01/2023 11:05:55 09/01/19 24 09/01/2023 COMPR EHENS STORM METAB OLIC PANEL sodium 140 mmol/ L 137-14 5 Not Available [facility] (Lab) [address] [place], [address], 09/01/2023 11:06:06 09/01/1909/01/2023 COMPR EHENS STORM METAB OLIC PANEL potassium 4.0 mmol/ L 3.5-5. 1 Not Available [facility] (Lab) [address] [place], [address], 09/01/2023 11:06:06 09/01/1909/01/2023 COMPR EHENS STORM METAB OLIC PANEL chloride 103 mmol/ L 98-107 Not Available [facility] (Lab) [address] [place], [address], 09/01/2023 11:06:06 09/01/1909/01/2023 COMPR EHENS STORM METAB OLIC PANEL carbon dioxide 30 mmol/ L 22-30 Not Available [facility] (Lab) [address] [place], [address], 09/01/2023 11:06:06 09/01/1901 0909/01/2023 COMPR EHENS STORM METAB OLIC PANEL anion gap 11.0 mmol/ L 14-22 low Not Available [facility] (Lab) [address] [place], [address], 09/01/2023 11:06:06 09/01/19 24 09/01/2023 COMPR EHENS STORM METAB OLIC PANEL glucose 160 mg/dL 70-99 high Not Available [facility] (Lab) [address] [place], [address], 09/01/2023 11:06:06 09/01/19 24 09/01/2023 COMPR EHENS STORM METAB OLIC PANEL BUN 29 mg/dL 8-19 high Not Available [facility] (Lab) [address] [place], [address], 09/01/2023 11:06:06 09/01/19 24 09/01/2023 COMPR EHENS STORM METAB OLIC PANEL creatinine 1.08 mg/dL 0.66-1 .25 Not Available [facility] (Lab) [address] [place], [address], 09/01/2023 11:06:06 09/01/19 24 09/01/2023 COMPR EHENS STORM METAB OLIC PANEL GFR 49 Refer ence Range : Reva ge GFR Healt hy Adult : >60 mL/mi n/1.7 3 m2 Chron ic Kidne y Disea se: 15-60 mL/mi n/1.7 3 m2 Kidne y Failu re: <15/m L/min /1.73 m2 www.n iddk. nih.g ov The MDRD study equat ion has not been valid ated in child marcellus <18 years of age; pregn ant women ; the elder ly >85 years of age; or in some racia l or ethni c subgr oups, such as Hispa nics. Outsi de the valid ated lynda eters , estim ated GFR is less accur ate, requi ring clini shandra judgm ent on a case- by-ca se basis . Clini shandra inter preta tion for other races and ages must be made by the clini lauren. The MDRD study equat ion has not been valid ated for the evalu ation of serum creat inine relat ed to nutri brittaney l statu s or medic ation usage . For perso ns <18 years of age, a pedia tric GFR calcu lator is avail able on the [facility] websi te: https ://long w.sonny ene.o rg/pr ofess ional s/kdo qi/gf r_cal culat or Not Available [facility] (Lab) [address] [place], [address], 09/01/2023 11:06:06 09/01/19 24 09/01/2023 COMPR EHENS STORM METAB OLIC PANEL alkaline phosphatase 64 U/L 38-126 Not Available [facility] (Lab) [address] [place], [address], 09/01/2023 11:06:06 09/01/19 24 09/01/2023 COMPR EHENS STORM METAB OLIC PANEL alanine aminotransfe rase 24 U/L 0-35 Not Available [facility] (Lab) [address] [place], [address], 09/01/2023 11:06:06 09/01/19 24 09/01/2023 COMPR EHENS STORM METAB OLIC PANEL aspartate aminotransfe rase 33 U/L 15-37 Not Available [facility] (Lab) [address] [place], [address], 09/01/2023 11:06:06 09/01/19 24 09/01/2023 COMPR EHENS STORM METAB OLIC PANEL bilirubin, total 0.60 mg/dL 0.20-1 .30 Not Available [facility] (Lab) [address] [place], [address], 09/01/2023 11:06:06 09/01/19 24 09/01/2023 COMPR EHENS STORM METAB OLIC PANEL calcium 10.4 mg/dL 8.4-10 .2 high Not Available [facility] (Lab) [address] [place], [address], 09/01/2023 11:06:06 09/01/19 24 09/01/2023 COMPR EHENS STORM METAB OLIC PANEL total protein 7.2 g/dL 6.3-8. 2 Not Available [facility] (Lab) [address] [place], [address], 09/01/2023 11:06:06 09/01/19 24 09/01/2023 COMPR EHENS STORM METAB OLIC PANEL albumin 4.4 g/dL 3.0-4. 4 Not Available [facility] (Lab) [address] [place], [address], 09/01/2023 11:06:06 09/01/19 24 09/01/2023 COMPR EHENS STORM METAB OLIC PANEL globulin 2.8 g/dL 2.6-4. 2 Not Available [facility] (Lab) [address] [place], [address], 09/01/2023 11:06:06 09/01/19 24 09/01/2023 COMPR EHENS STORM METAB OLIC PANEL A/G ratio 1.6 ratio 1.0-2. 0 Not Available [facility] (Lab) [address] [place], [address], 09/01/2023 11:06:06 09/06/19 24 09/06/2023 HEMOG LOBIN A1C HA1C 7.2 % 4.0-6. 0 high Diabe veronica Scree brigido Crite kash: <5.7% Consi stent with absen ce of diabe veronica 5.7-6 .4% Consi stent with incre ased risk for diabe veronica (pred iabet es) >OR=6 .5% Consi stent with diabe veronica REFER ENCE: Diabe veronica Care 2016, 39(Regan ppl.1 ):s13 -s22 Not Available [facility] (Lab) [address] [place], [address], 09/06/2023 12:13:49 Result Notes None recorded. Problems Name Problem SNOMED Code Status Onset Date Resolution Date Notes Provider Name and Address Organization Details Recorded Time Atypical chest pain 856254419 Active Not Available [facility] 4 04:57:11 Benign essential hypertension 2699745 Active Not Available [facility] 4 04:57:11 Backache 395882285 Active Not Available [facility] 4 04:57:11 Mammography abnormal 865271381 Active Not Available [facility] 4 04:57:11 Ultrasound scan abnormal 816067271 Active Not Available [facility] 4 04:57:11 Peripheral venous insufficiency 35100583 Active Not Available [facility] 4 04:57:11 Synovitis/ten osynovitis - hand 448693152 Active Not Available [facility] 4 04:57:11 Vitamin D deficiency 66927456 Active Not Available [facility] 4 04:57:11 Osteoarthriti s 251590545 Active Not Available [facility] 4 04:57:11 Hyperlipidemi a 52125002 Active Not Available [facility] 4 04:57:11 Chronic rhinitis 87349577 Active Not Available [facility] 4 04:57:11 Sciatica 33050563 Active 2022 Not Available [facility] 4 04:57:11 Hyperglycemia 52977496 Active 2023 Not Available [facility] 4 04:57:11 Problem Notes None recorded. Procedures Surgical History Date Name Laterality Status Provider Name and Address Organization Details Recorded Time 018 Partial mastectomy completed Not Available [facility] 10/07/2022 00:58:41 018 Mast mod rad completed Not Available [facility] 10/07/2022 00:58:42 013 Unlisted px dentalvlr strux completed Not Available [facility] 10/07/2022 00:58:42 012 Most Recent Bone Density completed Not Available [facility] 10/07/2022 00:58:35 010 Date of Last Colonoscopy completed Not Available [facility] 10/07/2022 00:58:35 lumpectomy of left breast completed Not Available [facility] 10/07/2022 00:58:41 biopsy of breast completed Not Available [facility] 10/07/2022 00:58:42 stereotactically guided percutaneous core needle biopsy of breast completed Not Available [facility] 10/07/2022 00:58:42 total knee replacement completed Not Available [facility] 10/07/2022 00:58:42 cataract surgery completed Not Available [facility] 10/07/2022 00:58:42 Total hysterectomy completed Not Available [facility] 10/07/2022 00:58:42 excision of axillary lymph node completed Not Available [facility] 10/07/2022 00:58:42 Imaging Results None recorded. Procedure Notes None recorded. Medical Equipment None Reported. Allergies Allergen ID Allergen Name Allergen Category Reaction Reaction Severity Criticality Documentation Date Start Date Code Code System Note Provider Name and Address Organization Details Recorded Time 2595 acetamino phen / oxycodone medicatio n other Not available Not available 10/07/2022 34435 3 RxNorm jitte ry Not Available [facility] 01:31:04 Medications Name Sig Start Date Stop Date Status Note LastModified by Organization Details LastModified Time anastrozole 1 mg tablet Take 1 tablet every day by oral route for 90 days. active Not Available Not Available No t Available prednisone 10 mg tablet take 3 tabs x 2 days, 2 tabs x 2 days, 1 tab x 2 days active Not Available Not Available No t Available azithromyci n 250 mg tablet TAKE 2 TABLETS (500 MG) BY ORAL ROUTE ONCE DAILY FOR 1 DAY THEN 1 TABLET (250 MG) BY ORAL ROUTE ONCE DAILY FOR 4 DAYS 07/11 completed Not Available Not Available Not Available ofloxacin 0.3 % eye drops INSTILL 1 DROP INTO SURGICAL EYE 3 TIMES DAILY, BEGINNING 2 DAYS PRIOR TO SURGERY 04/29 completed Not Available Not Available Not Available hydrocodone 5 mg-acetamin ophen 325 mg tablet 07/11 completed Not Available Not Available Not Available meloxicam 15 mg tablet TAKE ONE TABLET BY MOUTH ONCE DAILY active Not Available Not Available No t Available prednisone 20 mg tablet TAKE 2 TABLETS BY MOUTH EVERY DAY FOR 7 DAYS 03/09 completed Not Available Not Available Not Available amlodipine 5 mg tablet TAKE 1 TABLET EVERY DAY 2022 active Not Available Not Available Not Avai lable prochlorper azine maleate 10 mg tablet 06/07 completed Not Available Not Available Not Available fondaparinu x 2.5 mg/0.5 mL subcutaneou s solution syringe 06/07 completed Not Available Not Available Not Available sulfamethox azole 800 mg-trimetho prim 160 mg tablet 07/11 completed Not Available Not Available Not Available ketorolac 0.5 % eye drops INSTILL 1 DROP INTO SURGICAL EYE FOUR TIMES DAILY, BEGINNING 2 DAYS PRIOR TO SURGERY 04/29 completed Not Available Not Available Not Available Macrobid 100 mg capsule Take 1 capsule every 12 hours by oral route for 5 days. active Not Available Not Available No t Available Celebrex 200 mg capsule active Not Available Not Available Not Available oxycodone-a cetaminophe n 5 mg-325 mg tablet 06/07 completed Not Available Not Available Not Available prednisolon e acetate 1 % eye drops,suspe nsion 03/02 completed Not Available Not Available Not Available Kenalog 10 mg/mL suspension for injection In office injection administe red by the provider 07/03 completed [facility]: 0003- 0494- 20 Not Available Not Available Not Available hydrocodone 7.5 mg-acetamin ophen 325 mg tablet 06/07 completed Not Available Not Available Not Available diclofenac 0.1 % eye drops 06/24 completed Not Available Not Available Not Available tobramycin 0.3 % eye drops 06/24 completed Not Available Not Available Not Available etodolac 400 mg tablet 06/07 completed Not Available Not Available Not Available montelukast 10 mg tablet TAKE 1 TABLET EVERY DAY active Not Available Not Available No t Available hydrochloro thiazide 25 mg tablet TAKE 1 TABLET EVERY DAY active Not Available Not Available No t Available Aspir-81 mg tablet,juliana yed release Take 1 tablet every day by oral route. 04/29 completed Not Available Not Available Not Available methylpredn isolone 4 mg tablets in a dose pack PLEASE SEE ATTACHED FOR DETAILED DIRECTION S 03/09 completed Not Available Not Available Not Available Vitamin D2 1,250 mcg (50,000 unit) capsule Take 1 capsule every week by oral route. 12/20 completed Not Available Not Available Not Available tamoxifen 20 mg tablet 04/29 completed Not Available Not Available Not Available irbesartan 300 mg tablet TAKE 1 TABLET EVERY DAY 2022 active Not Available Not Available Not Avai lable Low Dose Aspirin 81 mg tablet,juliana yed release Take 1 tablet every day by oral route. 2022 active Not Available Not Available Not Avai lable Vitamin D3 25 mcg (1,000 unit) capsule Take by oral route. 06/29 completed Not Available Not Available Not Available rosuvastati n 10 mg tablet TAKE 1 TABLET EVERY DAY active Not Available Not Available No t Available Calcium 600 2017 active Not Available Not Available Not Avai lable Vitamin D3 1000IU 2020 active Not Available Not Available Not Avai lable Prevacid 2013 active Not Available Not Available Not Avai lable Zyrtec 2019 active Not Available Not Available Not Avai lable lidocaine (PF) 10 mg/mL (1 %) injection solution In office injection administe red by the provider 07/03 completed [facility]: 0409- 4276- 17 Not Available Not Available Not Available nebivolol 10 mg tablet TAKE 1 TABLET EVERY DAY 2022 active Not Available Not Available Not Avai lable Xarelto 20 mg tablet TAKE 1 TABLET BY MOUTH EVERY DAY 08/26 completed Not Available Not Available Not Available Xarelto DVT-PE Treatment 30-Day Starter 15 mg(42)-20 mg(9) tablet pack TAKE 15 MG (1 TABLET) TWICE A DAY FOR 21 DAYS, THEN TAKE 20 MG (1 TABLET) ONCE A DAY THERENABILA RLinda 08/26 completed Not Available Not Available Not Available Shingrix (PF) 50 mcg/0.5 mL intramuscul ar suspension, kit 04/21 completed Not Available Not Available Not Available Vitals Date Recorded Body mass index (BMI) Body height Heart rate Body temperature Body weight Systolic And Diastolic Provider Name and Address Organization Details Last Updated DateTime 3 34 kg/m2 163.83 cm 88 /min 98.3 [degF] 26705.0 7 g 136/80 mm[Hg] Not Available [facility] 3 01:04:04 Date Recorded Body mass index (BMI) Body height Heart rate Body temperature Body weight Systolic And Diastolic Provider Name and Address Organization Details Last Updated DateTime 2 35.2 kg/m2 163.83 cm 78 /min 97 [degF] 25749.2 1 g 136/80 mm[Hg] Not Available [facility] 3 01:04:04 Date Recorded Body mass index (BMI) Body height Heart rate Body temperature Body weight Systolic And Diastolic Provider Name and Address Organization Details Last Updated DateTime 2 35.3 kg/m2 163.83 cm 84 /min 97.5 [degF] 84164.8 1 g 128/80 mm[Hg] Not Available [facility] 3 01:04:04 Date Recorded Body height Body mass index (BMI) Body weight Body temperature Heart rate Oxygen saturation Oxygen saturation in Arterial blood by Pulse oximetry Systolic And Diastolic Provider Name and Address Organization Details Last Updated DateTime 3 163.83 cm 34.5 kg/m2 07668.8 4 g 97.6 [degF] 76 /min 98 % 98 % 142/84 mm[Hg] Dulce Maria Ford RN [place] [facility] [place] [email or web address] 3 09:59:33 Date Recorded Body mass index (BMI) Body height Heart rate Body temperature Body weight Systolic And Diastolic Provider Name and Address Organization Details Last Updated DateTime 2 34.1 kg/m2 163.83 cm 79 /min 98.1 [degF] 75873.6 6 g 138/82 mm[Hg] Not Available [facility] 3 01:04:04 Social History Question Answer Notes LastModified by Organizat ion Details LastModified Time Tobacco Smoking Status Never Smoker Not Available [facility] 10/07/2022 00:53:38 Do You Have An Advance Directive? Yes Patient To Bring Copy In For Chart. [id number] Information not available 10/07/2022 Are You Blind Or Do You Have Difficulty Seeing? No [id number] Information not available 10/07/2022 What Is Your Level Of Caffeine Consumption? Moderate MIGRATION.29953 61474 Information not available 10/07/2022 How Much Tobacco Do You Chew? None MIGRATION.86424 05823 Information not available 10/07/2022 In The 14 Days Before Symptom Onset, Have You Had Close Contact With A Laboratory-confi rmed COVID-19 While That Case Was Ill? No MIGRATION.93707 50088 Information not available 10/07/2022 In The 14 Days Before Symptom Onset, Have You Had Close Contact With A Person Who Is Under Investigation For COVID-19 While That Person Was Ill? No MIGRATION.33646 11895 Information not available 10/07/2022 Are You Deaf Or Do You Have Serious Difficulty Hearing? No MIGRATION.02922 18116 Information not available 10/07/2022 What Type Of Diet Are You Following? REGULAR MIGRATION.64044 56040 Information not available 10/07/2022 Which Illicit Or Recreational Drugs Have You Used? None MIGRATION.57695 46806 Information not available 10/07/2022 What Is The Highest Grade Or Level Of School You Have Completed Or The Highest Degree You Have Received? [id number] MIGRATION.06090 35061 Information not available 10/07/2022 Have There Been Any Changes To Your Family Or Social Situation? No MIGRATION.01253 34048 Information not available 10/07/2022 What Is The Fluoride Status Of Your Home? Unknown MIGRATION.61546 11034 Information not available 10/07/2022 Are There Any Guns Present In Your Home? No MIGRATION.88967 60880 Information not available 10/07/2022 Do You Use Insect Repellent Routinely? No MIGRATION.42593 94328 Information not available 10/07/2022 Where [facility] You Live? [facility] MIGRATION.12643 70237 Information not available 10/07/2022 Do You Have A Medical Power Of Service Person? Yes MIGRATION.92203 89202 Information not available 10/07/2022 What Was The Date Of Your Most Recent Tobacco Screening? 03/09/2023 [email or web address] Information not available 03/09/2023 Do You Have Any Pets? No MIGRATION.75392 88216 Information not available 10/07/2022 What Is Your Relationship Status? MIGRATION.93941 87511 Information not available 10/07/2022 Do You Use Your Seat Belt Or Car Seat Routinely? Yes MIGRATION.99408 83208 Information not available 10/07/2022 Do You Have Smoke And Carbon Monoxide Detectors In Your Home? Yes MIGRATION.35899 96457 Information not available 10/07/2022 Are You Passively Exposed To Smoke? No MIGRATION.82508 30456 Information not available 10/07/2022 Are There Any Smokers In Your House? No MIGRATION.79676 95321 Information not available 10/07/2022 How Much Tobacco Do You Smoke? No MIGRATION.10383 25322 Information not available 10/07/2022 What Types Of Sporting Activities Do You Participate In? None MIGRATION.49770 60806 Information not available 10/07/2022 Do You Use Sunscreen Routinely? Yes MIGRATION.95324 35444 Information not available 10/07/2022 Has Tobacco Cessation Counseling Been Provided? No Not Needed-nev er Smoked MIGRATION.24415 57959 Information not available 10/07/2022 How Many Years Have You Smoked Tobacco? 0 MIGRATION.48632 16394 Information not available 10/07/2022 Have You Recently Traveled Abroad? No MIGRATION.16536 53506 Information not available 10/07/2022 Do You Have Difficulty Walking Or Climbing Stairs? No MIGRATION.24408 35312 Information not available 10/07/2022 Do You Have Any Dietary Restrictions? No MIGRATION.04232 43373 Information not available 10/07/2022 Sex: Female Functional Status Question Answer Note LastModified by Organizat ion Details LastModified Time Do you use any illicit or recreational drugs? No MIGRATION.99715 58720 Information not available 10/07/2022 Do you or have you ever used any other forms of tobacco or nicotine? No MIGRATION.40911 17896 Information not available 10/07/2022 What is your level of alcohol consumption? None MIGRATION.74767 26865 Information not available 10/07/2022 Do you or have you ever used smokeless tobacco? Never used smokeless tobacco MIGRATION.81530 71099 Information not available 10/07/2022 Do you have transportation difficulties? No MIGRATION.57686 78602 Information not available 10/07/2022 Are you able to walk? [place]WOREST MIGRATION.94817 96951 Information not available 10/07/2022 Do you have difficulty doing errands alone? No MIGRATION.28630 60181 Information not available 10/07/2022 Are you able to care for yourself? Yes MIGRATION.52770 95253 Information not available 10/07/2022 What is your occupation? retired MIGRATION.95689 21629 Information not available 10/07/2022 Do you have difficulty dressing or bathing? No MIGRATION.09158 39703 Information not available 10/07/2022 Do you or have you ever used e-cigarettes or vape? Never used electronic cigarettes MIGRATION.01720 78700 Information not available 10/07/2022 What is your exercise level? Occasional Patient stated she is very active. MIGRATION.84325 57530 Information not available 10/07/2022 Mental Status Question Answer Note LastModified by Organizat ion Details LastModified Time Do you feel stressed (tense, restless, nervous, or anxious, or unable to sleep at night)? [id number] MIGRATION.10137189 26 Information not available 10/07/2022 Do you have difficulty concentrating, remembering or making decisions? No MIGRATION.24399022 26 Information not available 10/07/2022 Family History Relationship Description Onset Age of this Age Resolved Age Notes LastModified by Organization Details LastModified Time Maternal Aunt Malignant tumor of breast MIGRATION.636 [id number] Not available 10/07/2022 00:58:46 Father Cerebrovascu lar accident MIGRATION.469 [id number] Not available 10/07/2022 00:58:46 Mother Heart valve disorder MIGRATION.903 [id number] Not available 10/07/2022 00:58:46 Medical History Condition Response HYPERTENSION Y HIGH CHOLESTEROL / HYPERLIPIDEMIA Y BACK / NECK PROBLEMS Y HAVE YOU BEEN HOSPITALIZED OR SEEN IN [facility] ER IN THE PAST YEAR ? N ARTHRITIS Y HEARTBURN / REFLUX Y VASCULAR DISEASE Y CANCER: SPECIFY Y Gynecological History Statement/Question Response Menses Monthly N How many live births 2 Abnormal Pap N Date of Last Pap Date of Last Mammogram 02/05/2020 Date of Last Colonoscopy 05/13/2010 Most Recent Bone Density 02/01/2012 Obstetrics History GPAL:G 2 P 2 0 0 0 Type Value Full Term 2 Total 2 Immunizations Vaccine Type Date Status Note Provider Nam e and Address Organization Details Recorded Time COVID-19, mRNA, LNP-S, PF, 30 mcg/0.3 mL dose 1 completed Not Available [facility] 09/17/2023 04:57:12 COVID-19, mRNA, LNP-S, PF, 30 mcg/0.3 mL dose 1 completed Not Available [facility] 09/17/2023 04:57:12 COVID-19, mRNA, LNP-S, PF, 30 mcg/0.3 mL dose 1 completed Not Available [facility] 09/17/2023 04:57:12 Influenza, split virus, trivalent, preservative 0 completed Not Available [facility] 09/17/2023 04:57:12 zoster, unspecified formulation 0 completed Not Available [facility] 09/17/2023 04:57:12 zoster, unspecified formulation 0 completed Not Available [facility] 09/17/2023 04:57:12 Influenza, high-dose, trivalent, PF 9 completed Not Available [facility] 09/17/2023 04:57:12 Influenza, high-dose, trivalent, PF 8 completed Not Available [facility] 09/17/2023 04:57:12 Influenza, high-dose, trivalent, PF 7 completed Not Available [facility] 09/17/2023 04:57:12 Pneumococcal conjugate PCV 13 4 completed Not Available [facility] 09/17/2023 04:57:12 Past Encounters Encounter ID Performer Location Encounter Start Date Encounter Closed Date Diagnosis/Indication Diagnosis SNOMED-CT Code Diagnosis ICD10 Code Diagnosis Note [id number] Nenita Colon MD [facility] Internal Med [facility] [address] [place] , [address] [address] 10/07/2020 00:00:00 10/26/2020 13:43:12 [id number] Nenita Colon MD [facility] Internal Med [facility] [address] [place] [address] 04/21/2021 00:00:00 04/21/2021 10:35:08 [id number] Nenita Colon MD [facility] Internal Med [facility] [address] [place] [address] 10/29/2021 00:00:00 10/29/2021 14:01:44 [id number] Nenita Colon MD [facility] Internal Med [facility] [address] [facility] [address] [place] [address] 01/01/2022 00:00:00 01/01/2022 21:12:09 [id number] Nenita Colon MD [facility] Internal Med [facility] [address] [address] 04/29/2022 00:00:00 06/08/2022 20:31:42 [id number] Nenita Colon MD [facility] Internal Med [facility] [address] [address] 08/26/2022 00:00:00 08/26/2022 21:42:41 [id number] Nenita Colon MD [facility] Internal Med [facility] [address] [place] [address] 03/09/2023 09:42:47 03/09/2023 10:44:48 Benign essential hypertension 8764161 I10 Vitamin D deficiency 347 12591 E55.9 Hyperlipidemia 19114158 E78.5 Health Concerns Section Related Observation LastModified by Organization Detai ls LastModified Time None Recorded Concern Status LastModified by Organization Details LastModified Time None Recorded Advance Directives Directive Y: Patient to bring copy in for chart. Payers Insurance Date Sequence Insurance Name Policy Number Policy Ramsey Covered Member ID Ramsey Member ID Guarantor Name 03/09/2023 1 [employer] - MEDICARE-[employer] [address] (MEDICARE) Perla Aguero [id number] Perla Aguero 03/09/2023 2 [place] [id number] Perla Aguero [id number] Perla Aguero Notes Date Note Type Note Provider Name and Address Organization Details Recorded Time 03/09/2023 text/html Hypertension no chest pain dizziness or palpitations. Low vitamin-D level no new bone pain and she is taking her vitamin-D without any problems. Dyslipidemia maintained on rosuvastatin does pretty good with regards to intake of saturated fat. Localized history of breast cancer just saw oncology earlier in the year got really good report she does have some trigger fingers Nenita Colon MD [address] [place] [address], [place] [address], [place], [address], [facility] 03/09/2023 10:49:27 OBGyn Episode No OBEpisode recorded.
== END 2025-02-27 14:09 | disposition home or self-care (01) ==
PROVIDERS: PCP Internal Medicine
DX: I65.23 Occlusion and stenosis of bilateral carotid arteries (principal); H34.8312 Tributary (branch) retinal vein occlusion, right eye, stable; H34.8320 Tributary (branch) retinal vein occlusion, left eye, with macular edema
CPT/HCPCS: 93880

== ENCOUNTER 2025-07-17 08:49 | Outpatient (CLI) | payer MEDICARE, SELFPAY ==
--- NOTE | ~2025-07-17 | US_ITS ---
EXAM/PROCEDURE: US renal BI HISTORY: abn blood chem findings COMPARISON: None available. TECHNIQUE: Bilateral renal ultrasound FINDINGS: Echotexture of the kidneys may be slightly increased which could be associated with medical renal disease. Right kidney: 10.6 x 5.5 x 6.4 cm. 4.3 x 4.0 cm cyst in the upper pole the right kidney mildly complex in appearance. No hydronephrosis or large solid masses. Left kidney: 10.6 x 5.6 x 6.4 cm. Multiple cysts noted in the left kidney with the largest measuring 4.4 cm. Urinary bladder wall appears within normal limits. Bilateral ureteral jets are demonstrated. IMPRESSION: 1. Bilateral cystic masses in the kidneys probably benign. Correlate with follow-up renal ultrasound in 6 months or sooner if clinically appropriate. 2. Echotexture of the kidneys may be slightly increased which could be associated with medical renal disease. 3. Other findings as above. Reviewed, dictated and finalized at location A. [facility] [employer]NALYS[facility] DIRECTOR IMPRESSION: 1. Bilateral cystic masses in the kidneys probably benign. Correlate with follo w-up renal ultrasound in 6 months or sooner if clinically appropriate. 2. Echotexture of the kidneys may be slightly increased which could be associat ed with medical renal disease. 3. Other findings as above.
== END 2025-07-17 08:50 | disposition home or self-care (01) ==
PROVIDERS: PCP Internal Medicine; Visit Provider Internal Medicine
DX: R79.89 Other specified abnormal findings of blood chemistry (principal); N28.89 Other specified disorders of kidney and ureter
CPT/HCPCS: 76770